=== PATIENT | female | born 1980 | race Caucasian/White ===

== ENCOUNTER 2021-01-11 05:55 | Day surgery (SDC) | payer OTHER ==
[2021-01-11] MEDS ORDERED: Lactated Ringers 1,000 ML IV SCH (06:30)
[2021-01-11] MEDS ORDERED: Versed 2 MG/2 ML Injection ONE (07:31)
[2021-01-11] MEDS ORDERED: DIPRIVAN 200 MG/20 ML IV ONE ×2 (07:31→07:41)
[2021-01-11] MEDS ORDERED: Lactated Ringers 1,000 ML IV ONE (07:53)
[2021-01-11 08:24] VITALS: O2SAT 98
[2021-01-11 08:49] VITALS: BP 126/71; PULSE 68
--- NOTE | 2021-01-11 11:50 | OP ---
SURGERY DATE/TIME: 01/11/2021 2721 PREOPERATIVE DIAGNOSIS: Diarrhea. POSTOPERATIVE DIAGNOSIS: Normal exam. PROCEDURE: Colonoscopy with cold forceps biopsies. SURGEON: Dr. Casey. ANESTHESIA: MAC. Medications given by anesthesia department. HISTORY: The patient is a 40 year-old white female who reports she has been having problems with stools each time she eats with up to six times a day since June. The patient reports she did have problems with what was felt to be an irritable bowel issue for that time. She reports that she now has an ankle bracelet on and is obviously having increased stressors. The patient also reported that she has a brother that had a colostomy bag for unknown reason. The patient is felt the need to have endoscopic evaluation. She was appraised of the risks of the procedure including the risk of perforation, phlebitis, untoward reaction to medication, bleeding and missed lesions. The patient verbalized her understanding and desired to have the procedure performed. DESCRIPTION OF PROCEDURE: The patient was given the medications by the anesthesia department. She had continuous pulse oximetry, ECG monitoring, intermittent blood pressure monitoring and tidal CO2 monitoring during the examination. She was placed in the left lateral decubitus position. A digital rectal examination was performed and revealed normal anal sphincter tone and no masses. The flexible Olympus pediatric colonoscope was used to intubate the rectum. A view of the colon was developed sequentially to the cecum including a short distance into the terminal ileum. Upon insertion and withdrawal was noted approximately 1.5 cm firm submucosal lesion noted in the ascending colon. We attempted to biopsy this x2. We also did multiple biopsies throughout the colon to rule out microscopic colitis. The scope was removed from the patient who tolerated the procedure well and was sent back to OP recovery in good condition. The prep was noted to be fair.
== END 2021-01-11 09:00 | disposition home or self-care (01) ==
LOC: SDC 05:55
PROVIDERS: ATTEND Family Medicine
DX: R19.7 Diarrhea, unspecified (principal); I10 Essential (primary) hypertension; Z79.899 Other long term (current) drug therapy; Z87.19 Personal history of other diseases of the digestive system
CPT/HCPCS: 84703; 88305; J2250; J2704

== ENCOUNTER 2021-11-11 16:20 | Emergency (ER) | payer OTHER ==
--- NOTE | 2021-11-11 16:57 | ERPHSYRPT ---
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 pt reports associated lightheadedness today and has been dealing with palpitations for [address] Muñoz ordered a groundwater monitoring technician for her but she was unable to obtain it due to being quarentined. rates 6/10 CP now in L chest that radiates to L jaw and L shoulder. heart sounds clear Physician History: 41 yo wf w L sternal chest pain w radiation to L shoulder and L neck since 10:30. Pain is 6/10, sharp, and interrmittant lasting 1 minute. She denies N/V/Dyspnea/diaphoresis/cough/fever. Pt has a h/o HTN, tobacco abuse till 2 yrs ago but denies DM/hyperlipidemia. Nothing makes the pain better or worse. Timing/Duration: other (10:30AM) Quality: sharpness, stabbing Location: substernal Chest Pain Radiation: neck, arm (L shoulder) Severity of Pain-Max: moderate Severity of Pain-Current: moderate Modifying Factors: Worsens With: antacids, breathing, coughing, defecating, eating, exertion, lying down, morphine, movement, nitroglycerin, oxygen, palpation, rest, aspirin, sitting up, change in position Associated Symptoms: palpitations, No nausea, No vomiting, No heartburn, No abdominal pain, No shortness of breath, No cough, No hurts to breathe, No diaphoresis, No chills, No fever, No fatigue, No weakness, No swelling/lump in chest, No syncope, No rash, No headache, No dizziness, No edema Prior Chest Pain/Cardiac Workup: no prior chest pain Nitro Today/Relief: no nitro taken today Aspirin Treatment Today: 81 mg x 1 Allergies/Adverse Reactions: Penicillins Allergy (Severe, Verified 11/11/21 16:31) Anaphylactic Reaction Home Medications: Sertraline HCl 50 mg [Zoloft 50 mg Tablet] 100 mg PO DAILY 01/01/21 [History] Lisinopril/Hydrochlorothiazide [Lisinopril-Hctz 10-12.5 mg Tab] 1 each PO DAILY 01/11/21 [History] Famotidine [Pepcid] 40 mg PO DAILY 11/11/21 [History] Hx Tetanus, Diphtheria Vaccination/Date Given: Yes Hx Influenza Vaccination/Date Given: Yes Hx Pneumococcal Vaccination/Date Given: No Immunizations Up to Date: Yes Travel Risk - International Travel Have you traveled outside of the country in past 3 weeks: No - Coronavirus Screening Are you exhibiting any of the following symptoms?: No Close contact with a COVID-19 positive Pt in past 14-21 Days: No - Vaccine Status Have you recieved a Covid-19 vaccination: No - Review of Systems Constitutional: No Symptoms Eyes: No Symptoms Ears, Nose, & Throat: No Symptoms Respiratory: No Symptoms Cardiac: No Symptoms, Chest Pain Abdominal/Gastrointestinal: No Symptoms Genitourinary Symptoms: No Symptoms Musculoskeletal: No Symptoms Skin: No Symptoms Neurological: No Symptoms Psychological: No Symptoms Endocrine: No Symptoms Hematologic/Lymphatic: No Symptoms Immunological/Allergic: No Symptoms - Past Medical History Pertinent Past Medical History: Yes Neurological History: No Pertinent History ENT History: No Pertinent History Cardiac History: Hypertension Respiratory History: No Pertinent History Endocrine Medical History: No Pertinent History Musculoskeletal History: No Pertinent History GI Medical History: GERD, Gallbladder Disease History: No Pertinent History Psycho-Social History: Depression Female Reproductive Disorders: No Pertinent History - Past Surgical History Past Surgical History: Yes Neuro Surgical History: No Pertinent History Cardiac: No Pertinent History Respiratory: No Pertinent History Gastrointestinal: Cholecystectomy Genitourinary: No Pertinent History Musculoskeletal: No Pertinent History Female Surgical History: Section Other Surgical History: 2 c-sections, Lymph nodes removed from neck( related to infection per pt) - Social History Smoking Status: Never smoker Exposure to second hand smoke: No Drug Use: none Patient Lives Alone: No ([facility]) Significant Family History: no pertinent family hx - Female History Hx Last Menstrual Period: current Hx Now: No - Nursing Vital Signs Nursing Vital Signs: Initial Vital Signs Temperature 98.4 F 11/11/21 16:22 Pulse Rate 80 11/11/21 16:22 Respiratory Rate 21 11/11/21 16:22 Blood Pressure 133/66 11/11/21 16:22 O2 Sat by Pulse Oximetry 98 11/11/21 16:22 Pain Scale Pain Intensity 6 WNL - Physical Exam General Appearance: no apparent distress Eye Exam: PERRL/EOMI, eyes nml inspection Ears, Nose, Throat Exam: normal ENT inspection, TMs normal, pharynx normal, moist mucous membranes Neck Exam: normal inspection, non-tender, supple, full range of motion, No meningismus, No mass, No Brudzinski, No Kernig's, No carotid bruit Respiratory Exam: normal breath sounds, lungs clear, airway intact, No respiratory distress Cardiovascular Exam: regular rate/rhythm, normal heart sounds, normal peripheral pulses, capillary refill <2 sec, No murmur Gastrointestinal/Abdomen Exam: soft, normal bowel sounds, No tenderness Back Exam: normal inspection, normal range of motion, No CVA tenderness Extremity Exam: normal inspection, normal range of motion Neurologic Exam: alert, 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, cooperative, 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-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 nml as tested, normal mood/affect, nml cerebellar function, nml station & gait, sensation nml, No motor deficits, No sensory deficit Skin Exam: normal color, warm Lymphatic Exam: No adenopathy SpO2 Interpretation: normal SpO2: 98 O2 Delivery: Room Air - Course Nursing assessment & vital signs reviewed: Yes EKG Interpreted by Me: RATE (NSR/Rate 81/Normal QT-QTc/No acute ST segment changes) - Radiology Exams Chest X-ray Interpretation: Interpreted by me (CXR wnl) Ordered Tests: Medication Summary Discontinued Medications Generic Name Dose Route Start Last Admin Trade Name Freq PRN Reason Stop Dose Admin Aspirin 325 mg 11/12/21 10:00 11/11/21 16:52 Aspirin 325 Mg Tablet.Ec PO 12/12/21 09:59 325 mg QAM DELFINO Administration Lab/Rad Data: Laboratory Result Diagrams 11/11/21 17:04 11/11/21 17:04 Laboratory Results 11/11/21 11/11/21 11/11/21 Range/Units 17:04 17:04 17:04 WBC (4.0-10.5) K/mm3 RBC (4.1-5.4) M/mm3 Hgb (12.0-16.0) gm/dl Hct (35-47) % MCV (78-100) fl MCH (26-32) pg MCHC (32-36) g/dl RDW (11.5-14.0) % Plt Count (150-450) K/mm3 MPV (7.5-11.0) fl Gran % (36.0-66.0) % Eos # (Auto) (0-0.5) Absolute Lymphs (auto) (1.0-4.6) Absolute Monos (auto) (0.0-1.3) Lymphocytes % (24.0-44.0) % Monocytes % (0.0-12.0) % Eosinophils % (0.00-5.0) % Basophils % (0.0-0.4) % Absolute Granulocytes (1.4-6.9) Segmented Neutrophils (36.0-66.0) % Lymphocytes (Manual) (24-44) % Monocytes (Manual) (0.0-12.0) % Eosinophils (Manual) (0.00-3.0) % Basophils # (0-0.4) Platelet Estimate (NORMAL) RBC Morphology PT 13.2 H (9.4-12.5) SECONDS INR 1.12 (0.8-3.0) APTT 32.7 (25.1-36.5) SECONDS D-Dimer 589 H* (215-500) ng/mL Sodium 138 (137-145) mmol/L Potassium 4.1 (3.5-5.1) mmol/L Chloride 109 H (98-107) mmol/L Carbon Dioxide 19 L (22-30) mmol/L Anion Gap 14.6 (5-15) MEQ/L BUN 12 (7-17) mg/dL Creatinine 0.78 (0.52-1.04) mg/dL Estimated GFR > 60.0 ML/MIN Glucose 100 (74-106) mg/dL Calcium 9.0 (8.4-10.2) mg/dL Total Bilirubin 0.30 (0.2-1.3) mg/dL AST 24 (14-36) U/L ALT 23 (0-35) U/L Alkaline Phosphatase 98 (38-126) U/L Troponin I < 0.012 (0.000-0.034) ng/mL NT-Pro-B Natriuret Pep 106 (0-450) pg/mL Serum Total Protein 7.8 (6.3-8.2) g/dL Albumin 4.5 (3.5-5.0) g/dL 11/11/21 Range/Units 17:04 WBC 8.4 (4.0-10.5) K/mm3 RBC 4.12 (4.1-5.4) M/mm3 Hgb 11.6 L (12.0-16.0) gm/dl Hct 35.7 (35-47) % MCV 86.7 (78-100) fl MCH 28.2 (26-32) pg MCHC 32.5 (32-36) g/dl RDW 15.1 H (11.5-14.0) % Plt Count 314 (150-450) K/mm3 MPV 8.9 (7.5-11.0) fl Gran % 52.9 (36.0-66.0) % Eos # (Auto) 0.17 (0-0.5) Absolute Lymphs (auto) 3.13 (1.0-4.6) Absolute Monos (auto) 0.63 (0.0-1.3) Lymphocytes % 37.2 (24.0-44.0) % Monocytes % 7.5 (0.0-12.0) % Eosinophils % 2.0 (0.00-5.0) % Basophils % 0.4 (0.0-0.4) % Absolute Granulocytes 4.46 (1.4-6.9) Segmented Neutrophils 62 (36.0-66.0) % Lymphocytes (Manual) 28 (24-44) % Monocytes (Manual) 8 (0.0-12.0) % Eosinophils (Manual) 2 (0.00-3.0) % Basophils # 0.03 (0-0.4) Platelet Estimate NORMAL (NORMAL) RBC Morphology NORMAL PT (9.4-12.5) SECONDS INR (0.8-3.0) APTT (25.1-36.5) SECONDS D-Dimer (215-500) ng/mL Sodium (137-145) mmol/L Potassium (3.5-5.1) mmol/L Chloride (98-107) mmol/L Carbon Dioxide (22-30) mmol/L Anion Gap (5-15) MEQ/L BUN (7-17) mg/dL Creatinine (0.52-1.04) mg/dL Estimated GFR ML/MIN Glucose (74-106) mg/dL Calcium (8.4-10.2) mg/dL Total Bilirubin (0.2-1.3) mg/dL AST (14-36) U/L ALT (0-35) U/L Alkaline Phosphatase (38-126) U/L Troponin I (0.000-0.034) ng/mL NT-Pro-B Natriuret Pep (0-450) pg/mL Serum Total Protein (6.3-8.2) g/dL Albumin (3.5-5.0) g/dL - Progress Progress: improved Progress Note: 11/11/21 19:09 Heart score1 Troponin negative/CTA chest wnl/EKG wo acute changes Counseled pt/family regarding: lab results, diagnosis, need for follow-up, rad results - Departure Departure Disposition: Home Clinical Impression: Chest pain Condition: Stable Critical Care Time: No Referrals: TORRES MUÑOZ MD [Primary Care Provider] - Follow up/PCP as directed Instructions: Chest Pain (DC) Additional Instructions: Follow up with your family MD in 1-2 days Return to ER for increasing chest pain or shortness of breath
[2021-11-11 17:09] LABS: Absolute Neutrophil Ct (ANC) 4.46 (1.4-6.9); Basophil (Absolute #) 0.03 (0-0.4); Eosinophil (Absolute #) 0.17 (0-0.5); Hematocrit 35.7 % (35-47); Hemoglobin 11.6 gm/dl (12.0-16.0); Lymphocyte (Absolute #) 3.13 (1.0-4.6); Lymphocytes % 37.2 % (24.0-44.0); Mean Cell Volume 86.7 fl (78-100); Mean Corpuscular Hemoglobin 28.2 pg (26-32); Mean Corpuscular Hgb Concent. 32.5 g/dl (32-36); Mean Platelet Volume 8.9 fl (7.5-11.0); Monocyte (Absolute #) 0.63 (0.0-1.3); Monocytes % 7.5 % (0.0-12.0); Neutrophil % 52.9 % (36.0-66.0); Platelet Count 314 K/mm3 (150-450); Red Blood Count 4.12 M/mm3 (4.1-5.4); Red Cell Distribution Width 15.1 % (11.5-14.0); White Blood Count 8.4 K/mm3 (4.0-10.5)
[2021-11-11 17:15] LABS: INR 1.12 (0.8-3.0); PROTIME 13.2 SECONDS (9.4-12.5)
[2021-11-11 17:18] LABS: PTT 32.7 SECONDS (25.1-36.5)
[2021-11-11 17:29] LABS: ALBUMIN 4.5 g/dL (3.5-5.0); ALKALINE PHOSPHATASE 98 U/L (38-126); ANION GAP 14.6 MEQ/L (5-15); BLOOD UREA NITROGEN 12 mg/dL (7-17); CHLORIDE 109 mmol/L (98-107); Carbon Dioxide 19 mmol/L (22-30); Creatinine 1 0.78 mg/dL (0.52-1.04); EST GLOMERULAR FILTRATION RATE > 60.0 ML/MIN; Glucose 100 mg/dL (74-106); NT PRO BNP 106 pg/mL (0-450); Potassium 4.1 mmol/L (3.5-5.1); SGOT/AST 24 U/L (14-36); SGPT/ALT 23 U/L (0-35); SODIUM 138 mmol/L (137-145); Total Protein 7.8 g/dL (6.3-8.2)
[2021-11-11 18:36] VITALS: BP 118/70; PULSE 75
[2021-11-11 19:11] VITALS: O2SAT 98
[2021-11-11 20:21] LABS: Eosinophil 2 % (0.00-3.0); Lymphocytes 28 % (24-44); Monocyte 8 % (0.0-12.0); Neutrophils 62 % (36.0-66.0); Platelet Estimate NORMAL (NORMAL); Total Cells Counted 100
--- NOTE | 2021-11-12 08:35 | XRAY ---
Indication: Chest pain. Pulmonary embolus. Multiple contiguous axial images obtained through the chest using 100 cc Isovue 370 contrast and PE protocol. Comparison: None There is suboptimal opacification of the pulmonary arteries. No obvious pulmonary embolus. Heart not enlarged. Aorta is normal in course and caliber. Tiny paratracheal calcified nodes. No pathologic mediastinal lymphadenopathy. Small hiatal hernia. Lungs inflated with tiny right upper lobe calcified granulomas. No suspicious pulmonary mass, infiltrate, or effusion. Bony thorax intact with minimal/mild degenerative changes throughout the spine. Limited upper abdomen demonstrates fatty liver. Impression: 1. Negative pulmonary embolus. No acute cardiopulmonary abnormalities. 2. Incidental small hiatal hernia, fatty liver, degenerative spondylosis, and old granulomatous disease.
--- NOTE | 2021-11-12 08:37 | XRAY ---
Indication: Chest pain. Comparison: None Portable chest demonstrates normal heart, lungs, and bony thorax with incidental right apical calcified granuloma.
[2021-11-12] MEDS ORDERED: Ecotrin 325 MG PO SCH (10:00)
== END 2021-11-11 19:25 | disposition home or self-care (01) ==
LOC: ED 16:20
DX: R07.9 Chest pain, unspecified (principal); R00.2 Palpitations; I10 Essential (primary) hypertension; K21.9 Gastro-esophageal reflux disease without esophagitis; Z79.899 Other long term (current) drug therapy
CPT/HCPCS: 36000; 36415; 71045; 71260; 80053; 83880; 84484; 85025; 85379; 85610; 85730; 93005; 93225; 99284; A9270-GY

== ENCOUNTER 2022-11-18 18:08 | Emergency (ER) | payer OTHER ==
--- NOTE | 2022-11-18 18:12 | ERPHSYRPT ---
- History of Present Illness Time Seen by Provider: 11/18/22 18:12 Source: patient Exam Limitations: no limitations Allergies/Adverse Reactions: Penicillins Allergy (Severe, Verified 11/11/21 16:31) Anaphylactic Reaction Home Medications: Sertraline HCl 50 mg [Zoloft 50 mg Tablet] 100 mg PO DAILY 01/01/21 [History] Lisinopril/Hydrochlorothiazide [Lisinopril-Hctz 10-12.5 mg Tab] 1 each PO DAILY 01/11/21 [History] Famotidine [Pepcid] 40 mg PO DAILY 11/11/21 [History] Hx Tetanus, Diphtheria Vaccination/Date Given: Yes Hx Influenza Vaccination/Date Given: Yes Hx Pneumococcal Vaccination/Date Given: No Travel Risk - Vaccine Status Have you recieved a Covid-19 vaccination: No - Past Medical History Pertinent Past Medical History: Yes Neurological History: No Pertinent History ENT History: No Pertinent History Cardiac History: Hypertension Respiratory History: No Pertinent History Endocrine Medical History: No Pertinent History Musculoskeletal History: No Pertinent History GI Medical History: GERD, Gallbladder Disease History: No Pertinent History Psycho-Social History: Depression Female Reproductive Disorders: No Pertinent History - Past Surgical History Past Surgical History: Yes Neuro Surgical History: No Pertinent History Cardiac: No Pertinent History Respiratory: No Pertinent History Gastrointestinal: Cholecystectomy Genitourinary: No Pertinent History Musculoskeletal: No Pertinent History Female Surgical History: Section Other Surgical History: 2 c-sections, Lymph nodes removed from neck( related to infection per pt) - Social History Smoking Status: Never smoker Exposure to second hand smoke: No Drug Use: none Patient Lives Alone: No ([facility]) Significant Family History: no pertinent family hx - Departure Referrals: TORRES MUÑOZ MD [Primary Care Provider] - Follow up/PCP as directed
--- NOTE | 2022-11-18 18:50 | ERPHSYRPT ---
- History of Present Illness Time Seen by Provider: 11/18/22 18:12 Source: patient Exam Limitations: no limitations Patient Subjective Stated Complaint: pt here for bilat. shoulder pain with movement since last night and to day some neck pain. took tylenol and asa today . under a lot of stress Triage Nursing Assessment: pt alert, resp easy easy, skin w/d/p. walked in, no edema noted Physician History: This is a 42-year-old overweight white female who presents with neck and left shoulder pain that started yesterday and appeared to be worse today per her report. She has no chest pain. However, at work, her coworkers told her that those symptoms could be a sign of heart attack and she became worried. She stated that for the neck and shoulder pain she would have just use Tylenol and ibuprofen but because of her anxiety, she wanted her heart checked. Patient is not short of breath. She has no diagnosed cardiac problems. Patient did not fall or injure her neck or shoulder. Patient has a history of gastroesophageal reflux disease, depression, hyperlipidemia and hypertension Timing/Duration: today Severity: mild Associated Symptoms: denies symptoms Allergies/Adverse Reactions: Penicillins Allergy (Severe, Verified 11/18/22 18:23) Anaphylactic Reaction Home Medications: Sertraline HCl 50 mg [Zoloft 50 mg Tablet] 100 mg PO DAILY 01/01/21 [History] Lisinopril/Hydrochlorothiazide [Lisinopril-Hctz 10-12.5 mg Tab] 1 each PO DAILY 01/11/21 [History] Famotidine [Pepcid] 40 mg PO DAILY 11/11/21 [History] Exenatide Microspheres [Bydureon Bcise] 2 mg SQ UD 11/18/22 [History] Simvastatin 10 mg [Zocor 10MG] 10 mg PO DAILY 11/18/22 [History] Hx Tetanus, Diphtheria Vaccination/Date Given: Yes Hx Influenza Vaccination/Date Given: Yes Hx Pneumococcal Vaccination/Date Given: No Immunizations Up to Date: Yes Travel Risk - International Travel Have you traveled outside of the country in past 3 weeks: No - Coronavirus Screening Are you exhibiting any of the following symptoms?: No Close contact with a COVID-19 positive Pt in past 14-21 Days: No - Vaccine Status Have you recieved a Covid-19 vaccination: No - Review of Systems Constitutional: No Symptoms Eyes: No Symptoms Ears, Nose, & Throat: No Symptoms Respiratory: No Symptoms Cardiac: No Symptoms, No Chest Pain Abdominal/Gastrointestinal: No Symptoms Genitourinary Symptoms: No Symptoms Musculoskeletal: Neck Pain (Left muscularmild), Other (Left shoulder discomfortmild), No Injury Skin: No Symptoms Neurological: No Symptoms Psychological: No Symptoms Endocrine: No Symptoms Hematologic/Lymphatic: No Symptoms Immunological/Allergic: No Symptoms All Other Systems: Reviewed and Negative - Past Medical History Pertinent Past Medical History: Yes Neurological History: No Pertinent History ENT History: No Pertinent History Cardiac History: Hypertension Respiratory History: No Pertinent History Endocrine Medical History: No Pertinent History Musculoskeletal History: No Pertinent History GI Medical History: GERD, Gallbladder Disease History: No Pertinent History Psycho-Social History: Depression Female Reproductive Disorders: No Pertinent History - Past Surgical History Past Surgical History: Yes Neuro Surgical History: No Pertinent History Cardiac: No Pertinent History Respiratory: No Pertinent History Gastrointestinal: Cholecystectomy Genitourinary: No Pertinent History Musculoskeletal: No Pertinent History Female Surgical History: Section Other Surgical History: 2 c-sections, Lymph nodes removed from neck( related to infection per pt) - Social History Smoking Status: Never smoker Exposure to second hand smoke: No Drug Use: none Patient Lives Alone: No ([facility]) Significant Family History: no pertinent family hx - Female History Hx Last Menstrual Period: 10/30/2022 Hx Now: No - Nursing Vital Signs Nursing Vital Signs: Initial Vital Signs Temperature 97.2 F 11/18/22 18:31 Pulse Rate 77 11/18/22 18:31 Respiratory Rate 18 11/18/22 18:31 Blood Pressure 119/72 11/18/22 18:31 O2 Sat by Pulse Oximetry 98 11/18/22 18:31 Pain Scale Pain Intensity 6 - Physical Exam General Appearance: no apparent distress, alert, anxiety, obese Eye Exam: PERRL/EOMI, eyes nml inspection Ears, Nose, Throat Exam: normal ENT inspection, moist mucous membranes Neck Exam: normal inspection, non-tender, supple, full range of motion Respiratory Exam: normal breath sounds, lungs clear, airway intact, No chest tenderness, No respiratory distress Cardiovascular Exam: regular rate/rhythm, normal heart sounds, normal peripheral pulses Gastrointestinal/Abdomen Exam: soft, normal bowel sounds, No tenderness Pelvic Exam: not done Rectal Exam: not done Back Exam: normal inspection, normal range of motion, No CVA tenderness, No vertebral tenderness Extremity Exam: normal inspection, normal range of motion, pelvis stable Neurologic Exam: alert, 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, 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, 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, normal mood/affect, nml cerebellar function, nml station & gait, sensation nml Skin Exam: normal color, warm, dry Lymphatic Exam: No adenopathy SpO2 Interpretation: normal SpO2: 98 O2 Delivery: Room Air - Course Nursing assessment & vital signs reviewed: Yes EKG Interpreted by Me: RATE (71), Sinus Rhythm, NORMAL AXIS, NORMAL INTERVALS, NORMAL QRS, NORMAL ST-T, Other (No acute ischemic changes.) Ordered Tests: Active Orders 24 hr Category Date Time Status Planning Feeder STAT Care 11/18/22 18:51 Active EKG-ER Only STAT Care 11/18/22 18:51 Active Pulse Oximetry (ED) STAT Care 11/18/22 18:51 Active CBC W DIFF Stat Lab 11/18/22 19:05 Completed CMP Stat Lab 11/18/22 19:05 Completed D-DIMER QUANTITATIVE Stat Lab 11/18/22 19:05 Completed TROPONIN Q4H Lab 11/18/22 19:05 Completed TROPONIN Q4H Lab 11/18/22 23:00 Ordered TROPONIN Q4H Lab 11/19/22 03:00 Ordered Lab/Rad Data: Laboratory Result Diagrams 11/18/22 19:05 11/18/22 19:05 Laboratory Results 11/18/22 11/18/22 11/18/22 Range/Units 19:05 19:05 19:05 WBC (4.0-10.5) x10^3/uL RBC (4.1-5.4) x10^6/uL Hgb (12.0-16.0) g/dL Hct (35-47) % MCV (78-100) fL MCH (26-32) pg MCHC (32-36) g/dL RDW (11.5-14.0) % Plt Count (150-450) x10^3/uL MPV (7.5-11.0) fL Gran % (36.0-66.0) % Immature Gran % (Auto) (0.00-0.4) % Nucleat RBC Rel Count (0.00-0.1) % Eos # (Auto) (0-0.5) x10^3/uL Immature Gran # (Auto) (0.00-0.03) x10^3u/L Absolute Lymphs (auto) (1.0-4.6) x10^3/uL Absolute Monos (auto) (0.0-1.3) x10^3/uL Absolute Nucleated RBC (0.00-0.01) x10^3u/L Lymphocytes % (24.0-44.0) % Monocytes % (0.0-12.0) % Eosinophils % (0.00-5.0) % Basophils % (0.0-0.4) % Absolute Granulocytes (1.4-6.9) x10^3/uL Basophils # (0-0.4) x10^3/uL D-Dimer 0.21 (0.0-0.50) mg/L Sodium 141 (137-145) mmol/L Potassium 4.4 (3.5-5.1) mmol/L Chloride 106 (98-107) mmol/L Carbon Dioxide 24 (22-30) mmol/L Anion Gap 15.2 H (5-15) MEQ/L BUN 20 H (7-17) mg/dL Creatinine 0.91 (0.52-1.04) mg/dL Estimated GFR > 60.0 ML/MIN Glucose 97 (74-106) mg/dL Calcium 8.9 (8.4-10.2) mg/dL Total Bilirubin 0.30 (0.2-1.3) mg/dL AST 23 (14-36) U/L ALT 21 (0-35) U/L Alkaline Phosphatase 78 (38-126) U/L Troponin I < 0.012 (0.000-0.034) ng/mL Serum Total Protein 7.5 (6.3-8.2) g/dL Albumin 4.3 (3.5-5.0) g/dL 11/18/22 Range/Units 19:05 WBC 8.4 (4.0-10.5) x10^3/uL RBC 3.93 L (4.1-5.4) x10^6/uL Hgb 10.9 L (12.0-16.0) g/dL Hct 34.2 L (35-47) % MCV 87.0 (78-100) fL MCH 27.7 (26-32) pg MCHC 31.9 L (32-36) g/dL RDW 14.8 H (11.5-14.0) % Plt Count 269 (150-450) x10^3/uL MPV 9.5 (7.5-11.0) fL Gran % 53.6 (36.0-66.0) % Immature Gran % (Auto) 0.2 (0.00-0.4) % Nucleat RBC Rel Count 0.0 (0.00-0.1) % Eos # (Auto) 0.07 (0-0.5) x10^3/uL Immature Gran # (Auto) 0.02 (0.00-0.03) x10^3u/L Absolute Lymphs (auto) 3.31 (1.0-4.6) x10^3/uL Absolute Monos (auto) 0.48 (0.0-1.3) x10^3/uL Absolute Nucleated RBC 0.00 (0.00-0.01) x10^3u/L Lymphocytes % 39.3 (24.0-44.0) % Monocytes % 5.7 (0.0-12.0) % Eosinophils % 0.8 (0.00-5.0) % Basophils % 0.4 (0.0-0.4) % Absolute Granulocytes 4.52 (1.4-6.9) x10^3/uL Basophils # 0.03 (0-0.4) x10^3/uL D-Dimer (0.0-0.50) mg/L Sodium (137-145) mmol/L Potassium (3.5-5.1) mmol/L Chloride (98-107) mmol/L Carbon Dioxide (22-30) mmol/L Anion Gap (5-15) MEQ/L BUN (7-17) mg/dL Creatinine (0.52-1.04) mg/dL Estimated GFR ML/MIN Glucose (74-106) mg/dL Calcium (8.4-10.2) mg/dL Total Bilirubin (0.2-1.3) mg/dL AST (14-36) U/L ALT (0-35) U/L Alkaline Phosphatase (38-126) U/L Troponin I (0.000-0.034) ng/mL Serum Total Protein (6.3-8.2) g/dL Albumin (3.5-5.0) g/dL - Progress Progress: improved Progress Note: 11/18/22 19:53 This patient's medical issue is 1 of moderate complexity. The level of complexity and the work-up performed is based on review of the patient's past medical history, medication list and drug allergy list as well as history of present illness and physical findings on examination. The work-up performed includes twelve-lead EKG, CBC, CMP, D-dimer, troponin level. I reviewed the r esults of these studies. There are no emergent abnormalities. I discussed this with the patient. Patient does have muscle skeletal pain in the left shoulder and neck without history of trauma. The discharge plan would be for her to use Tylenol and ibuprofen and heating pad if she desires. Patient is to follow-up with primary care provider for further evaluation management. Counseled pt/family regarding: lab results, diagnosis, need for follow-up Medical Desision Making - Discussion of managment Agreed on:: Treatment plan, need for follow-up - Diagnostic Testing Diagnostic test were ordered, analyzed, and reviewed by me: Yes Radiological Interpretation: Interpreted by me - Departure Departure Disposition: Home Clinical Impression: Pain on movement of skeletal muscle Condition: Stable Critical Care Time: No Referrals: TORRES MUÑOZ MD [Primary Care Provider] - Follow up/PCP as directed Additional Instructions: Use Tylenol and ibuprofen for pain control. Follow-up with your primary care provider for further evaluation management.
[2022-11-18 19:16] LABS: Absolute Neutrophil Ct (ANC) 4.52 x10^3/uL (1.4-6.9); BASOPHIL % 0.4 % (0.0-0.4); Basophil (Absolute #) 0.03 x10^3/uL (0-0.4); Eosinophil % 0.8 % (0.00-5.0); Eosinophil (Absolute #) 0.07 x10^3/uL (0-0.5); Hematocrit 34.2 % (35-47); Hemoglobin 10.9 g/dL (12.0-16.0); IMMATURE GRAN # 0.02 x10^3u/L (0.00-0.03); IMMATURE GRAN % 0.2 % (0.00-0.4); Lymphocyte (Absolute #) 3.31 x10^3/uL (1.0-4.6); Lymphocytes % 39.3 % (24.0-44.0); Mean Corpuscular Hemoglobin 27.7 pg (26-32); Mean Corpuscular Hgb Concent. 31.9 g/dL (32-36); Mean Platelet Volume 9.5 fL (7.5-11.0); Monocyte (Absolute #) 0.48 x10^3/uL (0.0-1.3); Monocytes % 5.7 % (0.0-12.0); Neutrophil % 53.6 % (36.0-66.0); Platelet Count 269 x10^3/uL (150-450); Red Blood Count 3.93 x10^6/uL (4.1-5.4); Red Cell Distribution Width 14.8 % (11.5-14.0); White Blood Count 8.4 x10^3/uL (4.0-10.5)
[2022-11-18 19:30] LABS: ALBUMIN 4.3 g/dL (3.5-5.0); ALKALINE PHOSPHATASE 78 U/L (38-126); ANION GAP 15.2 MEQ/L (5-15); BLOOD UREA NITROGEN 20 mg/dL (7-17); CHLORIDE 106 mmol/L (98-107); Calcium 8.9 mg/dL (8.4-10.2); Carbon Dioxide 24 mmol/L (22-30); Creatinine 1 0.91 mg/dL (0.52-1.04); EST GLOMERULAR FILTRATION RATE > 60.0 ML/MIN; Glucose 97 mg/dL (74-106); Potassium 4.4 mmol/L (3.5-5.1); SGOT/AST 23 U/L (14-36); SGPT/ALT 21 U/L (0-35); SODIUM 141 mmol/L (137-145); Total Protein 7.5 g/dL (6.3-8.2)
[2022-11-18 19:55] VITALS: O2SAT 98
[2022-11-18 20:05] VITALS: BP 109/80; PULSE 75
== END 2022-11-18 20:09 | disposition home or self-care (01) ==
LOC: ED 18:08
DX: M79.18 Myalgia, other site (principal); M54.2 Cervicalgia; M25.512 Pain in left shoulder; E78.5 Hyperlipidemia, unspecified; I10 Essential (primary) hypertension; Z79.899 Other long term (current) drug therapy; Z28.310 Unvaccinated for COVID-19
CPT/HCPCS: 36415; 80053; 84484; 85025; 85379; 93005; 93041; 94760; 99283

== ENCOUNTER 2023-04-13 20:20 | Emergency (ER) | payer OTHER ==
[2023-04-13 20:44] VITALS: TEMP 99.4
[2023-04-13] MEDS ORDERED: Reglan 10 MG/2 ML IM ONE (20:48)
[2023-04-13] MEDS ORDERED: BENADRYL 50 MG/ML IM ONE (20:48)
[2023-04-13] MEDS ORDERED: TORAdol 30 mg Injection IM ONE (20:48)
[2023-04-13] MEDS ORDERED: BENADRYL 50 MG/ML ONE (20:53)
[2023-04-13] MEDS ORDERED: TORAdol 30 mg Injection ONE (20:53)
[2023-04-13] MEDS ORDERED: Reglan 10 MG/2 ML ONE (20:53)
--- NOTE | 2023-04-13 21:19 | ERPHSYRPT ---
- History of Present Illness Time Seen by Provider: 04/13/23 20:23 Source: patient Exam Limitations: no limitations Patient Subjective Stated Complaint: pt states she was positive for covid on monday. pt states that she began to have a headache and fever 2 hours prior to a rrival. 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 Patient reports she has been tested positive for COVID-19 almost 5 days ago, started to feel better and this evening she started to have fever 101 and headache, took Tylenol and temperature is improved. Reports generalized headache without blurry vision, numbness tingling or focal weakness. Denies any associated nausea vomiting. Does have diarrhea since she has COVID-19 few days ago. He has nonfocal neuro exam throughout stay in the ER. No nuchal rigidity. Lungs bilateral clear to auscultation. She is afebrile here. She is offered work-up but does not want anything done but symptomatic relief of her headache. She does have history of migraine and thinks its similar to that. Does not think this is the worst headache of her life. She is given Toradol Reglan and Benadryl, on reevaluation her headache is improved. She is advised symptomatic care and outpatient follow-up. Discussed signs symptoms of worsening needing return to ER which she seems understanding. Stable for discharge. Allergies/Adverse Reactions: Penicillins Allergy (Severe, Verified 04/13/23 20:29) Anaphylactic Reaction Home Medications: Sertraline HCl 50 mg [Zoloft 50 mg Tablet] 100 mg PO DAILY 01/01/21 [History] Lisinopril/Hydrochlorothiazide [Lisinopril-Hctz 10-12.5 mg Tab] 1 each PO DAILY 01/11/21 [History] Famotidine [Pepcid] 40 mg PO DAILY 11/11/21 [History] Exenatide Microspheres [Bydureon Bcise] 2 mg SQ UD 11/18/22 [History] Simvastatin 10 mg [Zocor 10MG] 10 mg PO DAILY 11/18/22 [History] Hx Tetanus, Diphtheria Vaccination/Date Given: Yes Hx Influenza Vaccination/Date Given: No Hx Pneumococcal Vaccination/Date Given: No Travel Risk - International Travel Have you traveled outside of the country in past 3 weeks: No - Coronavirus Screening Are you exhibiting any of the following symptoms?: Yes Symptoms: Fever, Headaches/Body Aches/Fatigue Close contact with a COVID-19 positive Pt in past 14-21 Days: No - Vaccine Status Have you recieved a Covid-19 vaccination: No - Review of Systems Constitutional: No Symptoms Eyes: No Symptoms Ears, Nose, & Throat: No Symptoms Respiratory: No Symptoms Cardiac: No Symptoms Abdominal/Gastrointestinal: No Symptoms Genitourinary Symptoms: No Symptoms Musculoskeletal: No Symptoms Skin: No Symptoms Neurological: Headache Psychological: No Symptoms Endocrine: No Symptoms Hematologic/Lymphatic: No Symptoms Immunological/Allergic: No Symptoms - Past Medical History Pertinent Past Medical History: Yes Neurological History: No Pertinent History ENT History: No Pertinent History Cardiac History: Hypertension Respiratory History: No Pertinent History Endocrine Medical History: No Pertinent History Musculoskeletal History: No Pertinent History GI Medical History: GERD, Gallbladder Disease History: No Pertinent History Psycho-Social History: Depression Female Reproductive Disorders: No Pertinent History - Past Surgical History Past Surgical History: Yes Neuro Surgical History: No Pertinent History Cardiac: No Pertinent History Respiratory: No Pertinent History Gastrointestinal: Cholecystectomy Genitourinary: No Pertinent History Musculoskeletal: No Pertinent History Female Surgical History: Section Other Surgical History: 2 c-sections, Lymph nodes removed from neck( related to infection per pt) - Social History Smoking Status: Smoker, status unknown Exposure to second hand smoke: No Drug Use: none Patient Lives Alone: No ([facility]) Significant Family History: no pertinent family hx - Female History Hx Now: No - Nursing Vital Signs Nursing Vital Signs: Initial Vital Signs Temperature 99.4 F 04/13/23 20:29 Pulse Rate 95 H 04/13/23 20:29 Respiratory Rate 22 04/13/23 20:29 Blood Pressure 135/94 04/13/23 20:29 O2 Sat by Pulse Oximetry 97 04/13/23 20:29 Pain Scale Pain Intensity 7 - Physical Exam General Appearance: no apparent distress, alert Eye Exam: PERRL/EOMI Ears, Nose, Throat Exam: normal ENT inspection, TMs normal, pharynx normal, moist mucous membranes Neck Exam: normal inspection, non-tender, supple, full range of motion, No meningismus Respiratory Exam: normal breath sounds, lungs clear Cardiovascular Exam: regular rate/rhythm, normal heart sounds Gastrointestinal/Abdominal Exam: soft, normal bowel sounds, No tenderness Extremity Exam: normal inspection, normal range of motion Mental Status Exam: alert, 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, 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 Exam: normal hearing, normal speech, PERRL Coordination/Gait Exam: normal finger to nose, normal gait, normal cerebellar function, negative Romberg's sign DTR Exam: bicep (R): 2+, bicep (L): 2+, knee (R): 2+, knee (L): 2+ Skin Exam: normal color SpO2 Interpretation: normal SpO2: 97 O2 Delivery: Room Air Ordered Tests: Medication Summary Discontinued Medications Generic Name Dose Route Start Last Admin Trade Name Freq PRN Reason Stop Dose Admin Diphenhydramine HCl 50 mg 04/13/23 20:48 04/13/23 20:56 Diphenhydramine Hcl 50 Mg/Ml Vial IM 04/13/23 20:49 50 mg STAT ONE Administration Diphenhydramine HCl Confirm 04/13/23 20:53 Diphenhydramine Hcl 50 Mg/Ml Vial Administered 04/13/23 20:54 Dose 50 mg .ROUTE .STK-MED ONE Ketorolac Tromethamine 30 mg 04/13/23 20:48 04/13/23 20:56 Ketorolac Tromethamine 30 Mg/Ml Inj IM 04/13/23 20:49 30 mg STAT ONE Administration Ketorolac Tromethamine Confirm 04/13/23 20:53 Ketorolac Tromethamine 30 Mg/Ml Inj Administered 04/13/23 20:54 Dose 30 mg .ROUTE .STK-MED ONE Metoclopramide HCl 10 mg 04/13/23 20:48 04/13/23 20:56 Metoclopramide Hcl 10 Mg/2 Ml Vial IM 04/13/23 20:49 10 mg STAT ONE Administration Metoclopramide HCl Confirm 04/13/23 20:53 Metoclopramide Hcl 10 Mg/2 Ml Vial Administered 04/13/23 20:54 Dose 10 mg .ROUTE .STK-MED ONE - Progress Progress: improved, re-examined Air Movement: good Progress Note: 04/13/23 21:37 43 years old female presented in the ER with chief complaint of headache. Patient reports she has been tested positive for COVID-19 almost 5 days ago, started to feel better and this evening she started to have fever 101 and headache, took Tylenol and temperature is improved. Reports generalized headache without blurry vision, numbness tingling or focal weakness. Denies any associated nausea vomiting. Does have diarrhea since she has COVID-19 few days ago. He has nonfocal neuro exam throughout stay in the ER. No nuchal rigidity. Lungs bilateral clear to auscultation. She is afebrile here. She is offered work-up but does not want anything done but symptomatic relief of her headache. She does have history of migraine and thinks its similar to that. Does not think this is the worst headache of her life. She is given Toradol Reglan and Benadryl, on reevaluation her headache is improved. She is advised symptomatic care and outpatient follow-up. Discussed signs symptoms of worsening needing return to ER which she seems understanding. Stable for discharge. Blood Culture(s) Obtained: No Antibiotics given: No Counseled pt/family regarding: diagnosis, need for follow-up - Departure Departure Disposition: Home Clinical Impression: Headache, COVID-19 Condition: Stable Critical Care Time: No Referrals: TORRES MUÑOZ MD [Primary Care Provider] - Follow up with PCP 1 day Instructions: Headache, Adult (DC), COVID-19 (DC) Additional Instructions: Take Tylenol/ibuprofen as needed. Drink plenty of fluids to keep yourself well- hydrated. Follow-up with primary care for reevaluation. Follow contact/droplet precautions for COVID-19. Return to ER for intractable headache, numbness tingling focal weakness etc.
[2023-04-13 21:44] VITALS: RESP 20
[2023-04-13 22:14] VITALS: BP 112/57; PULSE 77; O2SAT 98
== END 2023-04-13 22:13 | disposition home or self-care (01) ==
LOC: ED 20:20
DX: U07.1 COVID-19 (principal); R51.9 Headache, unspecified; R50.9 Fever, unspecified; I10 Essential (primary) hypertension; Z79.899 Other long term (current) drug therapy; Z28.310 Unvaccinated for COVID-19
CPT/HCPCS: 96372; 99283; J1200; J1885

== ENCOUNTER 2023-07-07 14:34 | Emergency (ER) | payer OTHER ==
[2023-07-07] MEDS ORDERED: XYLOCAINE 1% HCL 20 ML MDV IJ ONE (14:35)
[2023-07-07 15:13] VITALS: RESP 17; TEMP 98.2
[2023-07-07 15:40] LABS: HCG URINE TEST NEGATIVE (NEGATIVE)
[2023-07-07] MEDS ORDERED: TORAdol 30 mg Injection IM ONE (15:58)
[2023-07-07 16:03] LABS: Appearance Turbid (Clear); Leukocyte Esterase Large (Negative); Nitrite Positive (Negative); Protein,Urine Dip 300 (Negative); Specific Gravity 1.015 (1.005-1.030)
[2023-07-07 16:04] LABS: Bacteria Few /HPF (None Seen); Bilirubin Large (Negative); Blood Large (Negative); Epithelial Cells Rare /HPF (None Seen); Glucose, Urine 250 mg/dL (Negative); Ketones 15 (Negative); RBC 21-50 /HPF (0-5); Urobilinogen >=8.0 mg/dL (0.2); WBC 21-50 /HPF (0-5)
[2023-07-07 16:05] LABS: ADD URINE CULTURE? YES (NO)
[2023-07-07] MEDS ORDERED: TORAdol 30 mg Injection ONE (16:05)
[2023-07-07 16:08] VITALS: O2SAT 96
--- NOTE | 2023-07-07 16:36 | XRAY ---
Indication: Left costophrenic angle pain. Pelvic pressure. Multiple contiguous axial images obtained through the abdomen and pelvis without contrast. Comparison: None Lung bases clear. Heart not enlarged. Small hiatal hernia. Noncontrasted stomach and bowel loops appear nonobstructed normal appearing appendix. Previous cholecystectomy. No free fluid/air. Remaining liver, pancreas, spleen, adrenal glands, kidneys, ureters, bladder, and uterus are unremarkable for noncontrast exam. Minimal aortoiliac calcifications without AAA. Osseous structures intact with mild lower lumbar degenerative changes and minimal levoscoliosis centered at L4. No ventral or inguinal hernias. Impression: 1. Hiatal hernia, arteriosclerotic disease, and chronic bony findings. 2. Remaining CT abdomen/pelvis without contrast exam is normal.
--- NOTE | 2023-07-07 17:01 | ERPHSYRPT ---
- History of Present Illness Historian: patient Exam Limitations: no limitations Patient Subjective Stated Complaint: Pt reports she has been having low pelvic pain on the left side for approx two weeks, went to [facility] and did a self vaginal swab and was told she has a bacterial infection and placed on flagyl which she is has currently been taking for three days. Patient reports last night she started having left lower back pain that wraps around into left lower abdomen. Triage Nursing Assessment: Pt alert and oriented x3. Respirations easy/nonlabored. Skin w/p/d. Abdomen soft/round. No obvious deformities/contusions to lower back. Physician History: 43-year-old female with left costovertebral angle pain x1 day. Pain is 9 out of 10, sharp, and nothing makes it better or worse. Pain radiates to her left inguinal area. She has dysuria and increased frequency. She denies hematuria but is currently on her period. She has nausea without vomiting, diarrhea, or fever. Patient was seen in urgent care several days ago and diagnosed with bacterial vaginosis and started on Flagyl. She states that she has never had this pain before. Timing/Duration: yesterday Activities at Onset: rest Quality: sharpness Abdominal Pain Onset Location: LLQ, flank Severity of Pain-Max: severe Severity of Pain-Current: severe Modifying Factors: Improves With: nothing Associated Symptoms: back, nausea Previous symptoms: no prior history Allergies/Adverse Reactions: Penicillins Allergy (Severe, Verified 07/07/23 15:08) Anaphylactic Reaction Home Medications: Sertraline HCl 50 mg [Zoloft 50 mg Tablet] 100 mg PO DAILY 01/01/21 [History] Lisinopril/Hydrochlorothiazide [Lisinopril-Hctz 10-12.5 mg Tab] 1 each PO DAILY 01/11/21 [History] Famotidine [Pepcid] 40 mg PO DAILY 11/11/21 [History] Hx Tetanus, Diphtheria Vaccination/Date Given: Yes Hx Influenza Vaccination/Date Given: No Hx Pneumococcal Vaccination/Date Given: No Travel Risk - International Travel Have you traveled outside of the country in past 3 weeks: No - Coronavirus Screening Are you exhibiting any of the following symptoms?: No Close contact with a COVID-19 positive Pt in past 14-21 Days: No - Vaccine Status Have you recieved a Covid-19 vaccination: No - Review of Systems Constitutional: No Symptoms Eyes: No Symptoms Ears, Nose, & Throat: No Symptoms Respiratory: No Symptoms Cardiac: No Symptoms Abdominal/Gastrointestinal: No Symptoms, Nausea Genitourinary Symptoms: No Symptoms, Dysuria, Frequency Musculoskeletal: No Symptoms Skin: No Symptoms Neurological: No Symptoms Psychological: No Symptoms Endocrine: No Symptoms Hematologic/Lymphatic: No Symptoms Immunological/Allergic: No Symptoms - Past Medical History Pertinent Past Medical History: Yes Neurological History: No Pertinent History ENT History: No Pertinent History Cardiac History: Hypertension Respiratory History: No Pertinent History Endocrine Medical History: No Pertinent History Musculoskeletal History: No Pertinent History GI Medical History: GERD, Gallbladder Disease History: No Pertinent History Psycho-Social History: Depression Female Reproductive Disorders: No Pertinent History - Past Surgical History Past Surgical History: Yes Neuro Surgical History: No Pertinent History Cardiac: No Pertinent History Respiratory: No Pertinent History Gastrointestinal: Cholecystectomy Genitourinary: No Pertinent History Musculoskeletal: No Pertinent History Female Surgical History: Section Other Surgical History: 2 c-sections, Lymph nodes removed from neck( related to infection per pt) - Social History Smoking Status: Former smoker Exposure to second hand smoke: Yes Drug Use: none Patient Lives Alone: No Significant Family History: no pertinent family hx - Female History Hx Last Menstrual Period: 07/06/23 Hx Now: No - Nursing Vital Signs Nursing Vital Signs: Initial Vital Signs Temperature 98.2 F 07/07/23 15:01 Pulse Rate 77 07/07/23 15:01 Respiratory Rate 17 07/07/23 15:01 Blood Pressure 128/73 07/07/23 15:01 O2 Sat by Pulse Oximetry 97 07/07/23 15:01 Pain Scale Pain Intensity [Lower Back] 9 Pain Intensity 4 Vital signs within normal limits. - Physical Exam General Appearance: no apparent distress (Patient in no apparent distress but she does have some moderate pain.) Eye Exam: PERRL/EOMI, eyes nml inspection Ears, Nose, Throat Exam: normal ENT inspection, TMs normal, pharynx normal, moist mucous membranes Neck Exam: normal inspection (C-spine nontender to palpation) Respiratory Exam: normal breath sounds (Lungs clear to auscultation bilaterally.) Cardiovascular Exam: regular rate/rhythm (Regular rate rhythm no heaves gallops murmurs rubs) Gastrointestinal/Abdomen Exam: soft (Obese, soft, mild tenderness palpation left lower quadrant.) Pelvic Exam: not done Back Exam: CVA tenderness (Patient with moderate costovertebral angle tenderness to palpation) Extremity Exam: normal inspection, normal range of motion Neurologic Exam: alert, 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, cooperative, utility mechanic II-XII nml as tested, normal mood/affect, nml cerebellar function, nml station & gait, sensation nml Skin Exam: normal color Lymphatic Exam: No adenopathy SpO2 Interpretation: normal SpO2: 96 O2 Delivery: Room Air - Course Nursing assessment & vital signs reviewed: Yes - CT Exams Abdomen/Pelvis CT Interpretation: Discussed w/radiologist (CT abdomen pel without contrast demonstrates hiatal hernia without any other acute pathology) Ordered Tests: Active Orders 24 hr Category Date Time Status ABDOMEN AND PELVIS W/0 CONTRAS [CT] Stat Exams 07/07/23 15:58 Completed CULTURE,URINE Stat Lab 07/07/23 15:23 Received HCG QUALITATIVE, URINE Stat Lab 07/07/23 15:23 Completed UA W/RFX UR CULTURE Stat Lab 07/07/23 15:23 Completed Medication Summary Discontinued Medications Generic Name Dose Route Start Last Admin Trade Name Lisbeth PRN Reason Stop Dose Admin Hydrocodone Bitart/Acetaminophen 1 tablet 07/07/23 17:04 07/07/23 17:11 Hydrocodone/Acetamin 10-325 Mg Tablet PO 07/07/23 17:05 1 tablet ONCE ONE Administration Hydrocodone Bitart/Acetaminophen Confirm 07/07/23 17:06 Hydrocodone/Acetamin 10-325 Mg Tablet Administered 07/07/23 17:07 Dose 1 tablet .ROUTE .STK-MED ONE Ceftriaxone Sodium 1,000 mg 07/07/23 17:02 07/07/23 17:11 Ceftriaxone Sodium 1000 Mg Inj Vial IM 07/07/23 17:03 1,000 mg STAT ONE Administration Ceftriaxone Sodium Confirm 07/07/23 17:07 Ceftriaxone Sodium 1000 Mg Inj Vial Administered 07/07/23 17:08 Dose 1,000 mg .ROUTE .STK-MED ONE Ketorolac Tromethamine 30 mg 07/07/23 15:58 07/07/23 16:08 Ketorolac Tromethamine 30 Mg/Ml Inj IM 07/07/23 15:59 30 mg STAT ONE Administration Ketorolac Tromethamine Confirm 07/07/23 16:05 Ketorolac Tromethamine 30 Mg/Ml Inj Administered 07/07/23 16:06 Dose 30 mg .ROUTE .STK-MED ONE Lab/Rad Data: Laboratory Results 07/07/23 07/07/23 Range/Units 15:23 15:23 Urine Color [place] A (Yellow) Urine Appearance Turbid A (Clear) Urine pH 5.0 (4.6-8.0) Ur Specific [place] 1.015 (1.005-1.030) Urine Protein 300 A (Negative) Urine Glucose (UA) 250 A (Negative) mg/dL Urine Ketones 15 A (Negative) Urine Blood Large A (Negative) Urine Nitrite Positive A (Negative) Urine Bilirubin Large A (Negative) Urine Urobilinogen >=8.0 A (0.2) mg/dL Ur Leukocyte Esterase Large A (Negative) Urine Microscopic RBC 21-50 A (0-5) /HPF Urine Microscopic WBC 21-50 A (0-5) /HPF Ur Epithelial Cells Rare (None Seen) /HPF Urine Bacteria Few A (None Seen) /HPF Urine Culture Reflexed YES (NO) Urine HCG, Qual NEGATIVE (NEGATIVE) - Progress Progress: improved Progress Note: 07/07/23 18:07 Nursing note and vital signs reviewed. No food or housing insecurities noted. Urinalysis result reviewed and shared with patient. CT scan result reviewed and shared with patient. 07/07/23 18:07 30 mg IM Toradol with mild relief of pain. 1 g IM Rocephin. [place] 10/325 p.o. x1. Patient has a UTI without evidence of uterolithiasis at this time. She is also afebrile without any evidence of pyelonephritis this time. She will be treated as an outpatient with 750 mg of p.o. Levaquin daily x5 days. Patient advised to return to the ER for increasing pain or temperature greater 100.5. Prescription for Percocet 5/325 for 4 pills E prescribe to [facility]. Patient advised not to take her tramadol when taking her Percocet. She was also advised to take a stool softener with the Percocet. 07/07/23 18:10 Patient was also on her period when she gave a urine specimen which most likely accounts for the amount of blood in it. Counseled pt/family regarding: lab results, diagnosis, rad results Medical Desision Making - Diagnostic Testing Diagnostic test were ordered, analyzed, and reviewed by me: Yes Radiological Interpretation: Reviewed by me - Risk of complications The pt has a mod risk of morbidity or mortality based on: Need for prescription drug management - Departure Departure Disposition: Home Clinical Impression: UTI (urinary tract infection) Condition: Stable Critical Care Time: No Referrals: TORRES MUÑOZ MD [Primary Care Provider] - Follow up/PCP as directed Instructions: Urinary Tract Infection, Adult (DC) Additional Instructions: Start Levaquin once a day in the morning Pain meds as needed. Please use stool softener with pain meds. Follow-up with your family MD on Monday. Return to ER for increasing pain, temperature greater 100.5, or inability to swallow your antibiotic due to nausea vomiting etc. Prescriptions: Oxycodone HCl/Acetaminophen [Percocet 5-325 mg Tablet] 1 each PO Q6HPRN PRN #4 tablet MDD 4 tabs PRN Reason: Pain levoFLOXacin [Levofloxacin] 750 mg PO DAILY 5 Days #5 tablet
[2023-07-07] MEDS ORDERED: Rocephin 1000 MG INJ IM ONE (17:02)
[2023-07-07] MEDS ORDERED: HYDROCODONE-ACETAMIN 10-325 MG PO ONE (17:04)
[2023-07-07] MEDS ORDERED: HYDROCODONE-ACETAMIN 10-325 MG ONE (17:06)
[2023-07-07] MEDS ORDERED: Rocephin 1000 MG INJ ONE (17:07)
[2023-07-07 17:29] VITALS: BP 107/66; PULSE 69
== END 2023-07-07 17:38 | disposition home or self-care (01) ==
LOC: ED 14:34
DX: N39.0 Urinary tract infection, site not specified (principal); R10.9 Unspecified abdominal pain; R30.0 Dysuria; R35.0 Frequency of micturition; R11.0 Nausea; I10 Essential (primary) hypertension; Z79.891 Long term (current) use of opiate analgesic; Z79.899 Other long term (current) drug therapy; Z28.310 Unvaccinated for COVID-19
CPT/HCPCS: 36000; 74176; 81001; 81025; 87086; 96372; 99284; J0696; J1885; A9270-GY

== ENCOUNTER 2023-11-02 14:12 | Emergency (ER) | payer OTHER | END 2023-11-02 16:50 | disposition left against medical advice (07) | LOC: ED 14:12 | DX: Z53.8 Procedure and treatment not carried out for other reasons (principal) ==

== ENCOUNTER 2023-11-08 16:06 | Emergency (ER) | payer OTHER ==
--- NOTE | 2023-11-08 16:15 | ERPHSYRPT ---
- History of Present Illness Time Seen by Provider: 11/08/23 16:15 Source: patient, family Exam Limitations: no limitations Physician History: This 43-year-old obese white female patient Dr. Muñoz who presents with urinary retention, frequency and pressure with urinating as well as radiation of the discomfort to the patient's left flank area. Symptoms began yesterday and worsened today. Patient started herself on Azo [id number] medication without benefit. Patient has not had a fever. She has had no nausea vomiting or diarrhea symptoms. She denies shortness of breath and she denies chest pain. Patient states that she has had Rocephin injection in the past without any adverse reactions. Patient also states that she has received Cipro and Bactrim DS medication to treat urinary tract infections in the past. These have worked well for her. Timing/Duration: yesterday, worse Activites at Onset: none Quality: pressure, sharpness Onset Location: suprapubic Pain Radiation: left flank Severity of Pain-Max: mild Severity of Pain-Current: mild (Moderate moderate) Sexual intercourse history: non-contributory Modifying Factors: Improves With: nothing Associated Symptoms: urinary frequency, lower back pain Allergies/Adverse Reactions: Penicillins Allergy (Severe, Verified 11/08/23 16:32) Anaphylactic Reaction Home Medications: Lisinopril/Hydrochlorothiazide [Lisinopril-Hctz 20-12.5 mg Tab] 1 each PO DAILY 11/08/23 [History] Sertraline HCl 50 mg [Zoloft 50 mg Tablet] 1 ea DAILY 11/08/23 [History] Tramadol HCl 50 mg [Ultram 50 mg] 1 ea TID 11/08/23 [History] Hx Tetanus, Diphtheria Vaccination/Date Given: Yes Hx Influenza Vaccination/Date Given: No Hx Pneumococcal Vaccination/Date Given: No Travel Risk - International Travel Have you traveled outside of the country in past 3 weeks: No (Left side) - Coronavirus Screening Are you exhibiting any of the following symptoms?: No Close contact with a COVID-19 positive Pt in past 14-21 Days: No - Vaccine Status Have you recieved a Covid-19 vaccination: No - Review of Systems Constitutional: No Symptoms Eyes: No Symptoms Ears, Nose, & Throat: No Symptoms Respiratory: No Symptoms Cardiac: No Symptoms Abdominal/Gastrointestinal: No Symptoms Genitourinary Symptoms: Frequency, Urinary Retention, Flank Pain (Left side) Musculoskeletal: No Symptoms Skin: No Symptoms Neurological: No Symptoms Psychological: No Symptoms Endocrine: No Symptoms Hematologic/Lymphatic: No Symptoms Immunological/Allergic: No Symptoms All Other Systems: Reviewed and Negative - Past Medical History Pertinent Past Medical History: Yes Neurological History: No Pertinent History ENT History: No Pertinent History Cardiac History: Hypertension Respiratory History: No Pertinent History Endocrine Medical History: No Pertinent History Musculoskeletal History: No Pertinent History GI Medical History: GERD, Gallbladder Disease History: No Pertinent History Psycho-Social History: Depression Female Reproductive Disorders: No Pertinent History - Past Surgical History Past Surgical History: Yes Neuro Surgical History: No Pertinent History Cardiac: No Pertinent History Respiratory: No Pertinent History Gastrointestinal: Cholecystectomy Genitourinary: No Pertinent History Musculoskeletal: No Pertinent History Female Surgical History: Section Other Surgical History: 2 c-sections, Lymph nodes removed from neck( related to infection per pt) - Social History Smoking Status: Former smoker Exposure to second hand smoke: Yes Drug Use: none Patient Lives Alone: No Significant Family History: no pertinent family hx - Nursing Vital Signs Nursing Vital Signs: Pain Scale Pain Intensity 4 - Physical Exam General Appearance: no apparent distress, alert, anxiety, obese Eye Exam: PERRL/EOMI, eyes nml inspection Ears, Nose, Throat Exam: normal ENT inspection, moist mucous membranes Neck Exam: normal inspection, non-tender, supple, full range of motion Respiratory Exam: airway intact, No chest tenderness, No respiratory distress Gastrointestinal/Abdomen Exam: soft, normal bowel sounds, No tenderness, No guarding Pelvic Exam: not done Rectal Exam: not done Back Exam: normal inspection, normal range of motion, No CVA tenderness, No vertebral tenderness Extremity Exam: normal inspection, normal range of motion, pelvis stable Neurologic Exam: alert, 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, cooperative, regulatory affairs coordinator II-XII nml as tested, normal mood/affect, nml cerebellar function, nml station & gait, sensation nml Skin Exam: normal color, warm, dry Lymphatic Exam: No adenopathy SpO2 Interpretation: normal O2 Delivery: Room Air - Course Nursing assessment & vital signs reviewed: Yes Ordered Tests: Active Orders 24 hr Category Date Time Status CULTURE,URINE Stat Lab 11/08/23 16:32 Received UA W/RFX UR CULTURE Stat Lab 11/08/23 16:32 Completed Medication Summary Discontinued Medications Generic Name Dose Route Start Last Admin Trade Name Lisbeth PRN Reason Stop Dose Admin Ceftriaxone Sodium 1,000 mg 11/08/23 17:10 Ceftriaxone Sodium 1000 Mg Inj Vial IM 11/08/23 17:11 STAT ONE Lab/Rad Data: Laboratory Results 11/08/23 Range/Units 16:32 Urine Color [place] A (Yellow) Urine Appearance Clear (Clear) Urine pH 6.0 (4.6-8.0) Ur Specific [place] 1.025 (1.005-1.030) Urine Protein Negative (Negative) Urine Glucose (UA) Negative (Negative) mg/dL Urine Ketones Negative (Negative) Urine Blood Negative (Negative) Urine Nitrite Positive A (Negative) Urine Bilirubin Negative (Negative) Urine Urobilinogen 1.0 A (0.2) mg/dL Ur Leukocyte Esterase Negative (Negative) U Hyaline Cast (Auto) NONE SEEN (0-2) /LPF Urine Microscopic RBC 0-2 (0-5) /HPF Urine Microscopic WBC 0-2 (0-5) /HPF Ur Epithelial Cells Moderate A (None Seen) /HPF Urine Bacteria Few A (None Seen) /HPF Urine Culture Reflexed YES (NO) - Progress Progress: unchanged Air Movement: good Progress Note: 11/08/23 17:15 This patient's medical issue is 1 of low complexity. The level complex in the workup performed is based on review of the patient's past medical history, review the patient's medication list, review of patient drug allergy list, history present illness and physical findings on examination. The workup in this patient includes urinalysis. Antibiotics given: Yes Counseled pt/family regarding: lab results, diagnosis, need for follow-up Medical Desision Making - Diagnostic Testing Diagnostic test were ordered, analyzed, and reviewed by me: Yes - Risk of complications The pt has a mod risk of morbidity or mortality based on: Need for prescription drug management - Departure Departure Disposition: Home Clinical Impression: UTI (urinary tract infection) Condition: Stable Critical Care Time: No Referrals: TORRES MUÑOZ MD [Primary Care Provider] - Follow up/PCP as directed Additional Instructions: Drink plenty of fluids. If there are no contraindications, use Tylenol and ibuprofen for pain control. Take your antibiotics as prescribed. Follow-up with your primary care provider tomorrow, 11/09/2023 by phone to make arranges for follow-up appointment next 5 to 7 days. Prescriptions: Ciprofloxacin [Cipro 500 MG] 500 mg PO BID #14 tablet Phenazopyridine HCl 200 mg [Pyridium 200 mg] 200 mg PO TID #6 tablet
[2023-11-08 16:45] LABS: Appearance Clear (Clear); Bacteria Few /HPF (None Seen); Bilirubin Negative (Negative); Blood Negative (Negative); Epithelial Cells Moderate /HPF (None Seen); Glucose, Urine Negative (Negative); Hyaline Casts NONE SEEN /LPF (0-2); Ketones Negative (Negative); Leukocyte Esterase Negative (Negative); Nitrite Positive (Negative); Protein,Urine Dip Negative (Negative); RBC 0-2 /HPF (0-5); Specific Gravity 1.025 (1.005-1.030); WBC 0-2 /HPF (0-5)
[2023-11-08 16:48] LABS: ADD URINE CULTURE? YES (NO)
[2023-11-08] MEDS: Rocephin 1000 MG INJ IM ONE (17:12)
[2023-11-08] MEDS ORDERED: Rocephin 1000 MG INJ ONE (17:13)
[2023-11-08] MEDS ORDERED: XYLOCAINE 1% HCL 20 ML MDV ONE (17:14)
[2023-11-08 17:18] VITALS: BP 123/72; PULSE 80; RESP 16; O2SAT 96
== END 2023-11-08 17:27 | disposition home or self-care (01) ==
LOC: ED 16:06
DX: N39.0 Urinary tract infection, site not specified (principal); R33.9 Retention of urine, unspecified; R35.0 Frequency of micturition; I10 Essential (primary) hypertension; Z79.891 Long term (current) use of opiate analgesic; Z79.899 Other long term (current) drug therapy; Z28.310 Unvaccinated for COVID-19
CPT/HCPCS: 81001; 87086; 96372; 99283; J0696

== ENCOUNTER 2024-01-04 16:48 | Emergency (ER) | payer OTHER ==
[2024-01-04 17:13] VITALS: BP 114/57; RESP 18; TEMP 97.9
--- NOTE | 2024-01-04 17:33 | ERPHSYRPT ---
- History of Present Illness Time Seen by Provider: 01/04/24 16:54 Historian: patient Exam Limitations: no limitations Patient Subjective Stated Complaint: PT STATES SHE POSSIBLY HAS SWALLOWED A PIECE OF A PLASTIC FORK . SHE WAS EATING AND THEN NOTICED FORK WAS BROKEN. NO CO PAIN TO LOWER ABD AND LOOSE STOOLS Triage Nursing Assessment: PT ALERT, WALKED IN, RESP EASY,SKIN W/D/PABD LARGE ROUNDED,SOFT. MOVES ALL EXT WELL Physician History: 43-year-old female with history of hypertension, anxiety/depression presented in the ER with complaint of suprapubic area pain prior to arrival. Patient reports she was at [employer] class and all of a sudden she had a sharp pain 4/10 intensity with no significant relieving factor and it improved on its own and route to the ER. Patient reports currently more no pain while resting and minimal with palpation. Does have history of bladder issues in the past and has appointment with your scheduling manager next couple of days. Patient denies any urinary symptoms currently. She is also worried about as yesterday she was eating and noticed 1 prong of the fork was missing and she could not figure it out where it would have gone. She thinks she possibly swallowed it. No upper abdominal pain. No nausea or vomiting. She does have loose stool today. No history of constipation. No fever or chills reported. Allergies/Adverse Reactions: Penicillins Allergy (Severe, Verified 01/04/24 16:57) Anaphylactic Reaction Home Medications: Lisinopril/Hydrochlorothiazide [Lisinopril-Hctz 20-12.5 mg Tab] 1 each PO DAILY 11/08/23 [History] Sertraline HCl 50 mg [Zoloft 50 mg Tablet] 1 ea DAILY 11/08/23 [History] Hx Tetanus, Diphtheria Vaccination/Date Given: No Hx Influenza Vaccination/Date Given: No Hx Pneumococcal Vaccination/Date Given: No Immunizations Up to Date: Yes Travel Risk - International Travel Have you traveled outside of the country in past 3 weeks: No - Emerging Infectious Disease Are you exhibiting symptoms associated with any current EIDs: Yes Symptoms: Abdominal Pain - Review of Systems Constitutional: No Symptoms Ears, Nose, & Throat: No Symptoms Respiratory: No Symptoms Cardiac: No Symptoms Abdominal/Gastrointestinal: Abdominal Pain Genitourinary Symptoms: No Symptoms Musculoskeletal: No Symptoms Skin: No Symptoms Neurological: No Symptoms Psychological: Anxiety, Depression Endocrine: No Symptoms Hematologic/Lymphatic: No Symptoms Immunological/Allergic: No Symptoms - Past Medical History Pertinent Past Medical History: Yes Neurological History: No Pertinent History ENT History: No Pertinent History Cardiac History: Hypertension Respiratory History: No Pertinent History Endocrine Medical History: No Pertinent History Musculoskeletal History: No Pertinent History GI Medical History: GERD, Gallbladder Disease History: No Pertinent History Psycho-Social History: Depression Female Reproductive Disorders: No Pertinent History - Past Surgical History Past Surgical History: Yes Neuro Surgical History: No Pertinent History Cardiac: No Pertinent History Respiratory: No Pertinent History Gastrointestinal: Cholecystectomy Genitourinary: No Pertinent History Musculoskeletal: No Pertinent History Female Surgical History: Section Other Surgical History: 2 c-sections, Lymph nodes removed from neck( related to infection per pt) Significant Family History: no pertinent family hx - Female History Hx Last Menstrual Period: MONDAY Hx Now: No - Social History Smoking Status: Never smoker Exposure to second hand smoke: No Drug Use: none Patient Lives Alone: No - Nursing Vital Signs Nursing Vital Signs: Initial Vital Signs Temperature 97.9 F 01/04/24 17:11 Pulse Rate 75 01/04/24 17:11 Respiratory Rate 18 01/04/24 17:11 Blood Pressure 114/57 01/04/24 17:11 O2 Sat by Pulse Oximetry 97 01/04/24 17:11 Pain Scale Pain Intensity 5 - Physical Exam General Appearance: no apparent distress, alert Eye Exam: PERRL/EOMI Ears, Nose, Throat Exam: normal ENT inspection Neck Exam: normal inspection, supple, full range of motion Respiratory Exam: normal breath sounds, lungs clear Cardiovascular Exam: regular rate/rhythm, normal heart sounds Gastrointestinal/Abdomen Exam: soft, normal bowel sounds, tenderness (Minimal suprapubic tenderness to deep palpation. No right or left lower quadrant tenderness at all.) Back Exam: normal inspection, normal range of motion, No CVA tenderness Extremity Exam: normal inspection, normal range of motion Neurologic Exam: alert, 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, cooperative, lead database administrator II-XII nml as tested Skin Exam: normal color SpO2 Interpretation: normal SpO2: 97 O2 Delivery: Room Air - Progress Progress: improved Progress Note: 01/04/24 17:31 43-year-old is evaluated in the ER for suprapubic area pain earlier when she was at [employer]. Patient pain is improved. Has minimal tenderness to deep palpation in the suprapubic area. No right or left lower quadrant tenderness. No CVA tenderness. Good bowel sounds in all 4 quadrants. Patient was worried about possible intake of fork prong. She is counseled that it is less likely she has any perforation. No peritoneal signs at all. She is offered to have CT imaging, blood work and urinalysis but she does not want to get anything done as her pain is resolved. Discussed with patient about risk of not having any workup done which could not only delay the diagnosis but also worsening of condition but she wants to go home. She is thoroughly counseled and is being discharged. Counseled pt/family regarding: diagnosis, need for follow-up - Departure Departure Disposition: Home Clinical Impression: Suprapubic pain, Ingestion of foreign body Condition: Stable Critical Care Time: No Referrals: TORRES MUÑOZ MD [Primary Care Provider] - Follow up with PCP 1 day Instructions: Removal of Foreign Body, Swallowed, Adult, Severe Abdominal Pain, Adult (DC) Additional Instructions: Take Tylenol/ibuprofen as needed. Follow-up with primary care for reevaluation. Keep appointment with urogynecology. Return to ER for any worsening pain, intractable vomiting, fever chills etc.
[2024-01-04 17:54] VITALS: PULSE 78; O2SAT 98
== END 2024-01-04 18:00 | disposition home or self-care (01) ==
LOC: ED 16:48
DX: R10.30 Lower abdominal pain, unspecified (principal); T18.9XXA Foreign body of alimentary tract, part unspecified, initial encounter; W44.B9XA Other plastic object entering into or through a natural orifice, initial encounter; I10 Essential (primary) hypertension; Z79.899 Other long term (current) drug therapy
CPT/HCPCS: 99281

== ENCOUNTER 2024-07-23 20:05 | Observation (INO) | payer OTHER ==
[2024-07-23 20:24] LABS: Absolute Neutrophil Ct (ANC) 4.01 x10^3/uL (1.56-6.13); BASOPHIL % 0.5 % (0.1-1.2); Basophil (Absolute #) 0.04 x10^3/uL (0.01-0.08); Eosinophil % 1.4 % (0.7-5.8); Eosinophil (Absolute #) 0.11 x10^3/uL (0.04-0.36); Hematocrit 38.4 % (34.1-44.9); Hemoglobin 12.8 g/dL (11.2-15.7); IMMATURE GRAN # 0.03 x10^3u/L (0.001-0.031); IMMATURE GRAN % 0.4 % (0.001-0.429); Lymphocyte (Absolute #) 3.17 x10^3/uL (1.18-3.74); Lymphocytes % 40.1 % (19.3-51.7); Mean Cell Volume 87.1 fL (79.4-94.8); Mean Corpuscular Hgb Concent. 33.3 g/dL (32.2-35.5); Monocyte (Absolute #) 0.54 x10^3/uL (0.24-0.86); Monocytes % 6.8 % (4.7-12.5); Neutrophil % 50.8 % (34.0-71.1); Platelet Count 273 x10^3/uL (182-369); Red Blood Count 4.41 x10^6/uL (3.93-5.22); Red Cell Distribution Width 12.3 % (11.7-14.4); White Blood Count 7.9 x10^3/uL (3.98-10.04)
--- NOTE | 2024-07-23 20:29 | ERPHSYRPT ---
- History of Present Illness Time Seen by Provider: 07/23/24 21:51 Source: patient Exam Limitations: no limitations Patient Subjective Stated Complaint: C/O tingling to left side of face that started around 11am today while at work. No physical exertion. Patient indicates that this is what happens when she is anxious but that it normally resolves by now and it hasn't resolved. States now having some dull discomfort in her chest. Triage Nursing Assessment: Patient ambulated back to ER without difficulties. She is alert and oriented; anxious. Skin tone normal. GAUTHIER WNL. No SOB. No cough. Physician History: 44-year-old female presents to our emergency department for evaluation of tingling to her left face left arm and some chest discomfort that started this morning at approximately 11 AM. Patient states symptoms have been continuous. Upon arrival to our ED patient admitted she was very anxious. However her sym ptoms are likely not related to anxiety. No associated nausea vomiting or diaphoresis. Patient denies a history of the same. Patient otherwise feels well. She voices no other complaints or concerns at this time. Patient had 2 baby aspirin 2 days shortly after the onset of symptoms. Portions of this note were created with voice recognition technology. There may be grammatical, spelling, punctuation or sound alike errors Timing/Duration: today Severity: moderate Modifying Factors: Improves With: nothing Associated Symptoms: denies symptoms Allergies/Adverse Reactions: Penicillins Allergy (Severe, Verified 07/23/24 20:12) Anaphylactic Reaction Home Medications: Lisinopril/Hydrochlorothiazide [Lisinopril-Hctz 20-12.5 mg Tab] 1 each PO DAILY 11/08/23 [History] Sertraline HCl 50 mg [Zoloft 50 mg Tablet] 1 ea PO DAILY 11/08/23 [History] Cholecalciferol (Vitamin D3) [Vitamin D3] 1,250 mcg PO WEEKLY 07/23/24 [History] Exenatide Microspheres [Bydureon Bcise] 2 mg SQ WEEKLY 07/23/24 [History] Tramadol HCl 50 mg [Ultram 50 mg] 50 mg PO QID PRN 07/23/24 [History] hydrOXYzine HCL [Hydroxyzine HCl] 50 mg PO TID PRN 07/23/24 [History] Hx Tetanus, Diphtheria Vaccination/Date Given: Yes Hx Influenza Vaccination/Date Given: No Hx Pneumococcal Vaccination/Date Given: No Immunizations Up to Date: Yes Travel Risk - International Travel Have you traveled outside of the country in past 3 weeks: No - Emerging Infectious Disease Are you exhibiting symptoms associated with any current EIDs: No Symptoms: Abdominal Pain - Review of Systems Constitutional: No Symptoms, No Fever, No Chills Eyes: No Symptoms Ears, Nose, & Throat: No Symptoms Respiratory: No Symptoms, No Cough, No Dyspnea Cardiac: No Symptoms, No Chest Pain, No Edema, No Syncope Abdominal/Gastrointestinal: No Symptoms, No Abdominal Pain, No Nausea, No Vomiting, No Diarrhea Genitourinary Symptoms: No Symptoms, No Dysuria Musculoskeletal: No Symptoms, No Back Pain, No Neck Pain Skin: No Symptoms, No Rash Neurological: No Symptoms, No Dizziness, No Focal Weakness, No Sensory Changes Psychological: No Symptoms Endocrine: No Symptoms Hematologic/Lymphatic: No Symptoms Immunological/Allergic: No Symptoms All Other Systems: Reviewed and Negative - Past Medical History Pertinent Past Medical History: Yes Neurological History: No Pertinent History ENT History: No Pertinent History Cardiac History: Hypertension Respiratory History: No Pertinent History Endocrine Medical History: No Pertinent History Musculoskeletal History: No Pertinent History GI Medical History: GERD, Gallbladder Disease History: No Pertinent History Psycho-Social History: Anxiety, Depression Female Reproductive Disorders: No Pertinent History - Past Surgical History Past Surgical History: Yes Neuro Surgical History: No Pertinent History Cardiac: No Pertinent History Respiratory: No Pertinent History Gastrointestinal: Cholecystectomy Genitourinary: No Pertinent History Musculoskeletal: No Pertinent History Female Surgical History: Section Other Surgical History: 2 c-sections, Lymph nodes removed from neck (related to infection per pt) Significant Family History: no pertinent family hx - Female History Hx Last Menstrual Period: Just got off of it Hx Now: No - Social History Smoking Status: Never smoker Exposure to second hand smoke: No Drug Use: none Patient Lives Alone: No - Social Determinants of Health Will the patient participate in the screening: Yes Do you worry about a steady place to live?: No Do you have any problems with any of the following?: No known problems In the past 12 months,have you had to go without utilities?: No Transportation Issues: No Has anyone in your support network made you feel unsafe?: No Have you or anyone in your house had to go without enough: No - Nursing Vital Signs Nursing Vital Signs: Initial Vital Signs Temperature 97.9 F 07/23/24 20:14 Pulse Rate 76 07/23/24 20:14 Respiratory Rate 18 07/23/24 20:14 Blood Pressure 123/72 07/23/24 20:14 O2 Sat by Pulse Oximetry 99 07/23/24 20:14 Pain Scale Pain Intensity 4 - Physical Exam General Appearance: no apparent distress, alert Eye Exam: PERRL/EOMI, eyes nml inspection Ears, Nose, Throat Exam: normal ENT inspection, moist mucous membranes Neck Exam: normal inspection, non-tender, supple, full range of motion Respiratory Exam: normal breath sounds, lungs clear, airway intact, No respiratory distress Cardiovascular Exam: regular rate/rhythm, normal heart sounds, normal peripheral pulses Gastrointestinal/Abdomen Exam: soft, normal bowel sounds, No tenderness, No mass Back Exam: normal inspection, normal range of motion, No CVA tenderness, No vertebral tenderness Extremity Exam: normal inspection, normal range of motion, pelvis stable Neurologic Exam: alert, 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, cooperative, normal mood/affect, sensation nml, No motor deficits Skin Exam: normal color, warm, dry, No rash Lymphatic Exam: No adenopathy SpO2 Interpretation: normal SpO2: 99 O2 Delivery: Room Air - Course Nursing assessment & vital signs reviewed: Yes EKG Interpreted by Me: RATE (73), Sinus Rhythm, NORMAL AXIS, NORMAL INTERVALS, NORMAL QRS - CT Exams Head CT Interpretation: Tele-radiologist Report (CT head negative for acute intracranial pathology) Ordered Tests: Active Orders 24 hr Category Date Time Status Investigator Operator STAT Care 07/23/24 20:13 Active EKG-ER Only STAT Care 07/23/24 20:12 Active IV Insertion STAT Care 07/23/24 20:12 Active Pulse Oximetry (ED) STAT Care 07/23/24 20:12 Active HEAD WITHOUT CONTRAST [CT] Stat Exams 07/23/24 20:14 Taken CBC W DIFF Stat Lab 07/23/24 20:20 Completed CMP Stat Lab 07/23/24 20:20 Completed HCG QUALITATIVE, URINE Stat Lab 07/23/24 20:13 Completed TROPONIN Q4H Lab 07/23/24 20:20 Completed TROPONIN Q4H Lab 07/24/24 00:15 Ordered TROPONIN Q4H Lab 07/24/24 04:15 Ordered UA W/RFX UR CULTURE Stat Lab 07/23/24 20:13 Completed Transfer Order Routine Transfer 07/23/24 Ordered Medication Summary Generic Name Dose Route Start Last Admin Trade Name Lisbeth PRN Reason Stop Dose Admin Sodium Chloride 1,000 mls @ 75 mls/hr 07/23/24 22:00 Sodium Chloride 0.9% 1000 Ml IV 08/22/24 21:59 .[id number] DELFINO Discontinued Medications Generic Name Dose Route Start Last Admin Trade Name Lisbeth PRN Reason Stop Dose Admin Nitroglycerin 1 gm 07/23/24 22:04 Nitroglycerin 1 Gm Packet TOP 07/23/24 22:05 STAT ONE Potassium Chloride 40 meq 07/23/24 21:28 07/23/24 21:45 Potassium Chloride Tab 10 Meq Tab PO 07/23/24 21:29 40 meq STAT ONE Administration Potassium Chloride Confirm 07/23/24 21:38 Potassium Chloride Tab 10 Meq Tab Administered 07/23/24 21:39 Dose 40 meq .ROUTE .STK-MED ONE Lab/Rad Data: Laboratory Result Diagrams 07/23/24 20:20 07/23/24 20:20 Laboratory Results 07/23/24 07/23/24 07/23/24 Range/Units 20:20 20:20 20:20 WBC 7.9 (3.98-10.04) x10^3/uL RBC 4.41 (3.93-5.22) x10^6/uL Hgb 12.8 (11.2-15.7) g/dL Hct 38.4 (34.1-44.9) % MCV 87.1 (79.4-94.8) fL MCH 29.0 (25.6-32.2) pg MCHC 33.3 (32.2-35.5) g/dL RDW 12.3 (11.7-14.4) % Plt Count 273 (182-369) x10^3/uL MPV 9.0 L (9.4-12.3) fL Gran % 50.8 (34.0-71.1) % Immature Gran % (Auto) 0.4 (0.001-0.429) % Nucleat RBC Rel Count 0.0 (0.00-0.2) % Eos # (Auto) 0.11 (0.04-0.36) x10^3/uL Immature Gran # (Auto) 0.03 (0.001-0.031) x10^3u/L Absolute Lymphs (auto) 3.17 (1.18-3.74) x10^3/uL Absolute Monos (auto) 0.54 (0.24-0.86) x10^3/uL Absolute Nucleated RBC 0.00 (0.00-0.012) x10^3u/L Lymphocytes % 40.1 (19.3-51.7) % Monocytes % 6.8 (4.7-12.5) % Eosinophils % 1.4 (0.7-5.8) % Basophils % 0.5 (0.1-1.2) % Absolute Granulocytes 4.01 (1.56-6.13) x10^3/uL Basophils # 0.04 (0.01-0.08) x10^3/uL Sodium 140 (135-145) mmol/L Potassium 3.4 L (3.5-5.1) mmol/L Chloride 109 H (98-107) mmol/L Carbon Dioxide 21 L (22-30) mmol/L Anion Gap 14.1 (5-15) MEQ/L BUN 14 (7-17) mg/dL Creatinine 0.78 (0.52-1.04) mg/dL Estimated GFR 95.4 ML/MIN Glucose 122 H (74-106) mg/dL Calcium 9.3 (8.4-10.2) mg/dL Total Bilirubin 0.20 (0.2-1.3) mg/dL AST 25 (14-36) U/L ALT 28 (0-35) U/L Alkaline Phosphatase 77 (38-126) U/L Troponin I < 0.012 (0.000-0.033) ng/mL Serum Total Protein 7.2 (6.3-8.2) g/dL Albumin 4.3 (3.5-5.0) g/dL Urine Color (Yellow) Urine Appearance (Clear) Urine pH (4.6-8.0) Ur Specific [place] (1.005-1.030) Urine Protein (Negative) Urine Glucose (UA) (Negative) mg/dL Urine Ketones (Negative) Urine Blood (Negative) Urine Nitrite (Negative) Urine Bilirubin (Negative) Urine Urobilinogen (0.2) mg/dL Ur Leukocyte Esterase (Negative) U Hyaline Cast (Auto) (0-2) /LPF Urine Microscopic RBC (0-5) /HPF Urine Microscopic WBC (0-5) /HPF Ur Epithelial Cells (None Seen) /HPF Urine Bacteria (None Seen) /HPF Urine Culture Reflexed (NO) Urine HCG, Qual (NEGATIVE) 07/23/24 07/23/24 Range/Units 20:13 20:13 WBC (3.98-10.04) x10^3/uL RBC (3.93-5.22) x10^6/uL Hgb (11.2-15.7) g/dL Hct (34.1-44.9) % MCV (79.4-94.8) fL MCH (25.6-32.2) pg MCHC (32.2-35.5) g/dL RDW (11.7-14.4) % Plt Count (182-369) x10^3/uL MPV (9.4-12.3) fL Gran % (34.0-71.1) % Immature Gran % (Auto) (0.001-0.429) % Nucleat RBC Rel Count (0.00-0.2) % Eos # (Auto) (0.04-0.36) x10^3/uL Immature Gran # (Auto) (0.001-0.031) x10^3u/L Absolute Lymphs (auto) (1.18-3.74) x10^3/uL Absolute Monos (auto) (0.24-0.86) x10^3/uL Absolute Nucleated RBC (0.00-0.012) x10^3u/L Lymphocytes % (19.3-51.7) % Monocytes % (4.7-12.5) % Eosinophils % (0.7-5.8) % Basophils % (0.1-1.2) % Absolute Granulocytes (1.56-6.13) x10^3/uL Basophils # (0.01-0.08) x10^3/uL Sodium (135-145) mmol/L Potassium (3.5-5.1) mmol/L Chloride (98-107) mmol/L Carbon Dioxide (22-30) mmol/L Anion Gap (5-15) MEQ/L BUN (7-17) mg/dL Creatinine (0.52-1.04) mg/dL Estimated GFR ML/MIN Glucose (74-106) mg/dL Calcium (8.4-10.2) mg/dL Total Bilirubin (0.2-1.3) mg/dL AST (14-36) U/L ALT (0-35) U/L Alkaline Phosphatase (38-126) U/L Troponin I (0.000-0.033) ng/mL Serum Total Protein (6.3-8.2) g/dL Albumin (3.5-5.0) g/dL Urine Color Yellow (Yellow) Urine Appearance Clear (Clear) Urine pH 6.5 (4.6-8.0) Ur Specific [place] 1.025 (1.005-1.030) Urine Protein Negative (Negative) Urine Glucose (UA) Negative (Negative) mg/dL Urine Ketones Negative (Negative) Urine Blood Negative (Negative) Urine Nitrite Negative (Negative) Urine Bilirubin Negative (Negative) Urine Urobilinogen 0.2 (0.2) mg/dL Ur Leukocyte Esterase Negative (Negative) U Hyaline Cast (Auto) NONE SEEN (0-2) /LPF Urine Microscopic RBC 0-2 (0-5) /HPF Urine Microscopic WBC 0-2 (0-5) /HPF Ur Epithelial Cells Few (None Seen) /HPF Urine Bacteria Rare A (None Seen) /HPF Urine Culture Reflexed NO (NO) Urine HCG, Qual NEGATIVE (NEGATIVE) - Progress Progress: improved Progress Note: 44-year-old female BMI of 43.3 presents to emergency department for evaluation of tingling to the left face left arm. Tingling associated with chest pain. Physical exam otherwise nonremarkable. CT head negative for acute intracranial pathology. Potassium slightly low at 3.4. Oral potassium replacement administered. Patient had 2 baby aspirin today. Initial troponin negative. EKG sinus rhythm. In light of patient's paresthesia has been consulted teleneuro. Teleneuro evaluated patient advised admission. Patient reassessed. Patient continues to feel chest pressure. Nitropaste administered. IV fluids administered. Patient will be admitted for further evaluation and treatment. Case discussed with Dr. Kelsey Cordero who accepts admission to observation at 10 PM. Plan of care discussed with patient. She agrees to admission at [facility] for further evaluation and treatment. Portions of this note were created with voice recognition technology. There may be grammatical, spelling, punctuation or sound alike errors Complexity of problem addressed is moderate acute complicated. No critical care time. Complexity of data reviewed and analyzed is extensive. Test ordered chest reviewed results analyzed and correlated clinically with history and physical exam. Evaluation discussed with neurologist. Management discussed w [facility] hospitalist. Risk of complication and or risk of morbidity/mortality of patient management is high. Patient requires hospitalization for further evaluation and treatment. Vital stable. Time spent to admit patient is approximately 20 minutes. Plan of care established for shared decision making. No social determinants of health present to impede follow-up. Portions of this note were created with voice recognition technology. There may be grammatical, spelling, punctuation or sound alike errors 07/23/24 22:04 Counseled pt/family regarding: lab results, diagnosis, rad results - Departure Departure Disposition: Observation Clinical Impression: Left face and left arm tingling, TIA (transient ischemic attack), Chest pain, Hypokalemia Condition: Stable Critical Care Time: No Referrals: TORRES MUÑOZ MD [Primary Care Provider] - Follow up/PCP as directed
[2024-07-23 20:45] LABS: ALBUMIN 4.3 g/dL (3.5-5.0); ANION GAP 14.1 MEQ/L (5-15); BILIRUBIN,TOTAL 0.2 mg/dL (0.2-1.3); Calcium 9.3 mg/dL (8.4-10.2); Creatinine 1 0.78 mg/dL (0.52-1.04); EST GLOMERULAR FILTRATION RATE 95.4 ML/MIN; Potassium 3.4 mmol/L (3.5-5.1); Total Protein 7.2 g/dL (6.3-8.2)
[2024-07-23 20:45] LABS: HCG URINE TEST NEGATIVE (NEGATIVE)
[2024-07-23 20:49] LABS: Appearance Clear (Clear); Bacteria Rare /HPF (None Seen); Bilirubin Negative (Negative); Blood Negative (Negative); Epithelial Cells Few /HPF (None Seen); Glucose, Urine Negative (Negative); Hyaline Casts NONE SEEN /LPF (0-2); Ketones Negative (Negative); Leukocyte Esterase Negative (Negative); Nitrite Negative (Negative); Ph 6.5 (4.6-8.0); Protein,Urine Dip Negative (Negative); RBC 0-2 /HPF (0-5); Specific Gravity 1.025 (1.005-1.030); Urobilinogen 0.2 mg/dL (0.2); WBC 0-2 /HPF (0-5)
[2024-07-23] MEDS ORDERED: Klor Con ONE (21:38)
[2024-07-23] MEDS: Klor Con PO ONE (21:45)
--- NOTE | 2024-07-23 22:21 | PCM.HP ---
History of Present Illness - Chief Complaint Chief Complaint: TIA concern History of Present Illness: 44F presented with tingling of the left side of the face around 11 am and chest discomfort. She appeared very anxious in the ED and a CTH was negative. VSS, no focal exam findings in the ED. Neurology recommended an MRI of the brain to evaluate for TIA. I spoke with the neurologist who felt she should be admitted overnight for a TIA work up (lipid, a1c, echo with bubble) and that the MRI of the brain can be done as an outpatient. Pt denies fevers, chills, nausea, vomiting, diarrhea. No prior history of these symptoms. - Review of Systems Constitutional: No Fever, No Chills Eyes: No Symptoms Ears, Nose, & Throat: No Symptoms Respiratory: No Cough, No Short Of Breath Cardiac: No Chest Pain, No Edema, No Syncope Abdominal/Gastrointestinal: No Abdominal Pain, No Nausea, No Vomiting, No Diarrhea Genitourinary Symptoms: No Dysuria Musculoskeletal: No Back Pain, No Neck Pain Skin: No Rash Neurological: No Dizziness, No Focal Weakness, No Sensory Changes Psychological: No Symptoms Endocrine: No Symptoms Hematologic/Lymphatic: No Symptoms Immunological/Allergic: No Symptoms Medications & Allergies Home Medications: Home Medication List Lisinopril/Hydrochlorothiazide [Lisinopril-Hctz 20-12.5 mg Tab] 1 each PO DAILY 11/08/23 [History Confirmed 07/23/24] Sertraline HCl 50 mg [Zoloft 50 mg Tablet] 1 ea PO DAILY 11/08/23 [History Confirmed 07/23/24] Cholecalciferol (Vitamin D3) [Vitamin D3] 1,250 mcg PO WEEKLY 07/23/24 [History Confirmed 07/23/24] Exenatide Microspheres [Bydureon Bcise] 2 mg SQ WEEKLY 07/23/24 [History Confirmed 07/23/24] Tramadol HCl 50 mg [Ultram 50 mg] 50 mg PO QID PRN 07/23/24 [History Confirmed 07/23/24] hydrOXYzine HCL [Hydroxyzine HCl] 50 mg PO TID PRN 07/23/24 [History Confirmed 07/23/24] Allergies/Adverse Reactions: Allergies Allergy/AdvReac Type Severity Reaction Status Date / Time Penicillins Allergy Severe Anaphylactic Verified 07/23/24 20:12 Reaction - Past Medical History Past Medical History: Yes Neurological History: No Pertinent History ENT History: No Pertinent History Cardiac History: Hypertension Respiratory History: No Pertinent History Endocrine Medical History: No Pertinent History Musculoskelatal History: No Pertinent History GI Medical History: GERD, Gallbladder Disease History: No Pertinent History Pyscho-Social History: Anxiety, Depression Reproductive Disorders: No Pertinent History - Female History Hx Last Menstrual Period: Just got off of it Are you now?: No - Past Surgical History Past Surgical History: No Neuro Surgical History: No Pertinent History Cardiac History: No Pertinent History Respiratory Surgery: No Pertinent History GI Surgical History: Cholecystectomy Genitourinary Surgical Hx: No Pertinent History Musculskeletal Surgical Hx: No Pertinent History Female Surgical History: Section Other Surgical History: 2 c-sections, Lymph nodes removed from neck (related to infection per pt) Significant Family History: no pertinent family hx - Social History Smoking Status: Never smoker Exposure to second hand smoke: No Alcohol: None Drug Use: none - Social Determinants of Health Will the patient participate in the screening: Yes Do you worry about a steady place to live?: No Do you have any problems with any of the following?: No known problems In the past 12 months,have you had to go without utilities?: No Have you or anyone in your house had to go without enough: No Transportation Issues: No Has anyone in your support network made you feel unsafe?: No - Physical Exam Vital Signs: Vital Signs - 24 hr Temp Pulse Resp BP BP Pulse Ox 07/23/24 22:11 99 07/23/24 20:59 68 18 107/72 96 07/23/24 20:30 74 15 115/73 97 07/23/24 20:14 97.9 F 76 18 123/72 99 General Appearance: no apparent distress, alert Neurologic Exam: alert, 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, cooperative, normal mood/affect, nml cerebellar function, nml station & gait, sensation nml, No motor deficits Eye Exam: PERRL/EOMI, eyes nml inspection Ears, Nose, Throat Exam: normal ENT inspection, TMs normal, pharynx normal, moist mucous membranes Neck Exam: normal inspection, non-tender, supple, full range of motion Respiratory Exam: normal breath sounds, lungs clear, No respiratory distress Cardiovascular Exam: regular rate/rhythm, normal heart sounds, normal peripheral pulses Gastrointestinal/Abdomen Exam: soft, normal bowel sounds, No tenderness, No mass Back Exam: normal inspection, normal range of motion, No CVA tenderness, No vertebral tenderness Extremity Exam: normal inspection, normal range of motion, pelvis stable Skin Exam: normal color, warm, dry, No rash Lymphatic Exam: No adenopathy Results - Labs Lab/Micro Results: Lab Results-Last 24 Hours 07/23/24 07/23/24 07/23/24 Range/Units 20:13 20:13 20:20 WBC 7.9 (3.98-10.04) x10^3/uL RBC 4.41 (3.93-5.22) x10^6/uL Hgb 12.8 (11.2-15.7) g/dL Hct 38.4 (34.1-44.9) % MCV 87.1 (79.4-94.8) fL MCH 29.0 (25.6-32.2) pg MCHC 33.3 (32.2-35.5) g/dL RDW 12.3 (11.7-14.4) % Plt Count 273 (182-369) x10^3/uL MPV 9.0 L (9.4-12.3) fL Gran % 50.8 (34.0-71.1) % Immature Gran % (Auto) 0.4 (0.001-0.429) % Nucleat RBC Rel Count 0.0 (0.00-0.2) % Eos # (Auto) 0.11 (0.04-0.36) x10^3/uL Immature Gran # (Auto) 0.03 (0.001-0.031) x10^3u/L Absolute Lymphs (auto) 3.17 (1.18-3.74) x10^3/uL Absolute Monos (auto) 0.54 (0.24-0.86) x10^3/uL Absolute Nucleated RBC 0.00 (0.00-0.012) x10^3u/L Lymphocytes % 40.1 (19.3-51.7) % Monocytes % 6.8 (4.7-12.5) % Eosinophils % 1.4 (0.7-5.8) % Basophils % 0.5 (0.1-1.2) % Absolute Granulocytes 4.01 (1.56-6.13) x10^3/uL Basophils # 0.04 (0.01-0.08) x10^3/uL Sodium (135-145) mmol/L Potassium (3.5-5.1) mmol/L Chloride (98-107) mmol/L Carbon Dioxide (22-30) mmol/L Anion Gap (5-15) MEQ/L BUN (7-17) mg/dL Creatinine (0.52-1.04) mg/dL Estimated GFR ML/MIN Glucose (74-106) mg/dL Calcium (8.4-10.2) mg/dL Total Bilirubin (0.2-1.3) mg/dL AST (14-36) U/L ALT (0-35) U/L Alkaline Phosphatase (38-126) U/L Troponin I (0.000-0.033) ng/mL Serum Total Protein (6.3-8.2) g/dL Albumin (3.5-5.0) g/dL Urine Color Yellow (Yellow) Urine Appearance Clear (Clear) Urine pH 6.5 (4.6-8.0) Ur Specific [place] 1.025 (1.005-1.030) Urine Protein Negative (Negative) Urine Glucose (UA) Negative (Negative) mg/dL Urine Ketones Negative (Negative) Urine Blood Negative (Negative) Urine Nitrite Negative (Negative) Urine Bilirubin Negative (Negative) Urine Urobilinogen 0.2 (0.2) mg/dL Ur Leukocyte Esterase Negative (Negative) U Hyaline Cast (Auto) NONE SEEN (0-2) /LPF Urine Microscopic RBC 0-2 (0-5) /HPF Urine Microscopic WBC 0-2 (0-5) /HPF Ur Epithelial Cells Few (None Seen) /HPF Urine Bacteria Rare A (None Seen) /HPF Urine Culture Reflexed NO (NO) Urine HCG, Qual NEGATIVE (NEGATIVE) 07/23/24 07/23/24 Range/Units 20:20 20:20 WBC (3.98-10.04) x10^3/uL RBC (3.93-5.22) x10^6/uL Hgb (11.2-15.7) g/dL Hct (34.1-44.9) % MCV (79.4-94.8) fL MCH (25.6-32.2) pg MCHC (32.2-35.5) g/dL RDW (11.7-14.4) % Plt Count (182-369) x10^3/uL MPV (9.4-12.3) fL Gran % (34.0-71.1) % Immature Gran % (Auto) (0.001-0.429) % Nucleat RBC Rel Count (0.00-0.2) % Eos # (Auto) (0.04-0.36) x10^3/uL Immature Gran # (Auto) (0.001-0.031) x10^3u/L Absolute Lymphs (auto) (1.18-3.74) x10^3/uL Absolute Monos (auto) (0.24-0.86) x10^3/uL Absolute Nucleated RBC (0.00-0.012) x10^3u/L Lymphocytes % (19.3-51.7) % Monocytes % (4.7-12.5) % Eosinophils % (0.7-5.8) % Basophils % (0.1-1.2) % Absolute Granulocytes (1.56-6.13) x10^3/uL Basophils # (0.01-0.08) x10^3/uL Sodium 140 (135-145) mmol/L Potassium 3.4 L (3.5-5.1) mmol/L Chloride 109 H (98-107) mmol/L Carbon Dioxide 21 L (22-30) mmol/L Anion Gap 14.1 (5-15) MEQ/L BUN 14 (7-17) mg/dL Creatinine 0.78 (0.52-1.04) mg/dL Estimated GFR 95.4 ML/MIN Glucose 122 H (74-106) mg/dL Calcium 9.3 (8.4-10.2) mg/dL Total Bilirubin 0.20 (0.2-1.3) mg/dL AST 25 (14-36) U/L ALT 28 (0-35) U/L Alkaline Phosphatase 77 (38-126) U/L Troponin I < 0.012 (0.000-0.033) ng/mL Serum Total Protein 7.2 (6.3-8.2) g/dL Albumin 4.3 (3.5-5.0) g/dL Urine Color (Yellow) Urine Appearance (Clear) Urine pH (4.6-8.0) Ur Specific [place] (1.005-1.030) Urine Protein (Negative) Urine Glucose (UA) (Negative) mg/dL Urine Ketones (Negative) Urine Blood (Negative) Urine Nitrite (Negative) Urine Bilirubin (Negative) Urine Urobilinogen (0.2) mg/dL Ur Leukocyte Esterase (Negative) U Hyaline Cast (Auto) (0-2) /LPF Urine Microscopic RBC (0-5) /HPF Urine Microscopic WBC (0-5) /HPF Ur Epithelial Cells (None Seen) /HPF Urine Bacteria (None Seen) /HPF Urine Culture Reflexed (NO) Urine HCG, Qual (NEGATIVE) - Radiology Impressions Radiology Exams & Impressions: Radiology Procedures Category Date Time Status ECHO W/2D AND DOPPLER [US] Stat Exams 07/23/24 22:15 Ordered HEAD WITHOUT CONTRAST [CT] Stat Exams 07/23/24 20:14 Taken Assessment/Plan (1) TIA (transient ischemic attack) Current Visit: Yes Status: Acute Assessment & Plan: 1. Tele neurology consulted 2. Will admit for TIA work up per tele-neuro 3. Obtain A1c, Lipid panel, Echo with Bubble. MRI of brain can be done as an outpatient per neuro. Code(s): G45.9 - TRANSIENT CEREBRAL ISCHEMIC ATTACK, UNSPECIFIED (2) Left face and left arm tingling Current Visit: Yes Status: Acute Assessment & Plan: 1. Ddx is TIA vs anxiety 2. TIA workup as noted above Code(s): R20.2 - PARESTHESIA OF SKIN Telemedicine Encounter - Telemedicine Encounter Telemedicine Encounter: "The entirety of this encounter was performed via Telemedicine" This visit was performed using real-time audio and video connection between my location and thepatients locationwith the assistance of a surrogateat the patients location. Written or verbal consent was obtained from the pat ient/guardian to perform this visit [email or web address] technology. Any patient questions regarding the telemedicine interaction were answered.
[2024-07-23] MEDS ORDERED: NITRO-BID 2% UD PACKETS ONE (22:27)
[2024-07-23] MEDS: LIPITOR 40MG PO STA (22:29)
[2024-07-23] MEDS: NITRO-BID 2% UD PACKETS TOP ONE (22:30)
[2024-07-23] MEDS: Sodium Chloride 0.9% 1000 ML 1,000 ML IV SCH (22:38)
[2024-07-23] MEDS ORDERED: BENADRYL 50 MG/ML ONE (22:48)
[2024-07-23] MEDS: BENADRYL 50 MG/ML IV ONE (22:48)
[2024-07-23] MEDS ORDERED: NON-FORMULARY ITEM (Cholecalciferol (Vitamin D3) [Vitamin D3] 1,250 MCG Capsule) PO SCH (23:45)
[2024-07-23] MEDS ORDERED: NON-FORMULARY ITEM (Exenatide Microspheres [Bydureon Bcise] 2 MG/0.85 ML Auto.Injct) SQ SCH (23:45)
[2024-07-23] MEDS ORDERED: NON-FORMULARY ITEM (Hydroxyzine Hcl [Hydroxyzine Hcl] 50 MG Tablet) PO PRN (23:52)
[2024-07-24] MEDS: ULTRAM 50 MG PO PRN ×2 (00:06→07:48)
[2024-07-24] MEDS: TYLENOL 325 MG PO ONE (03:32)
[2024-07-24 03:35] VITALS: RESP 16
[2024-07-24 06:14] LABS: Absolute Neutrophil Ct (ANC) 3.17 x10^3/uL (1.56-6.13); BASOPHIL % 0.7 % (0.1-1.2); Basophil (Absolute #) 0.05 x10^3/uL (0.01-0.08); Eosinophil % 2.2 % (0.7-5.8); Eosinophil (Absolute #) 0.17 x10^3/uL (0.04-0.36); Hematocrit 36.3 % (34.1-44.9); Hemoglobin 11.8 g/dL (11.2-15.7); IMMATURE GRAN # 0.03 x10^3u/L (0.001-0.031); IMMATURE GRAN % 0.4 % (0.001-0.429); Lymphocyte (Absolute #) 3.62 x10^3/uL (1.18-3.74); Lymphocytes % 47.6 % (19.3-51.7); Mean Cell Volume 87.7 fL (79.4-94.8); Mean Corpuscular Hemoglobin 28.5 pg (25.6-32.2); Mean Corpuscular Hgb Concent. 32.5 g/dL (32.2-35.5); Mean Platelet Volume 9.6 fL (9.4-12.3); Monocyte (Absolute #) 0.56 x10^3/uL (0.24-0.86); Monocytes % 7.4 % (4.7-12.5); Neutrophil % 41.7 % (34.0-71.1); Platelet Count 249 x10^3/uL (182-369); Red Blood Count 4.14 x10^6/uL (3.93-5.22); Red Cell Distribution Width 12.5 % (11.7-14.4); White Blood Count 7.6 x10^3/uL (3.98-10.04)
--- NOTE | 2024-07-24 06:22 | PCM.NOTE ---
Date and Time: 07/24/24614 Subjective Assessment: Ms. Jaime is a 44 year old female with a pmhx of HTN, GERD, and anxiety/depression who presented to ED 07/23/24 with complaints of left facial/arm numbness and tingling. Patient also noted chest discomfort. Symptoms persistent. No associated N/V. Upon arrival to ED vitals stable. EKG per ED read RATE (73), Sinus Rhythm, NORMAL AXIS, NORMAL INTERVALS, NORMAL QRS. CT head with no acute intracranial pathology. Initial lab findings with hypokalemia at 3.4 and co2 at 21. CBC and UA negative. Troponin I series negative x 3. Lipid panel with elevated trig, choles, and LDL -Simvastatin started. Neurology consulted and advised admission for stroke rule out with Echo (bubble study not available at this facility)/MRI Brain w/o co - start 81mg ASA. Potassium replenished in ED. MRI/Echo pending. Symptoms have resolved. Patient does report residual h/a and eye pain. No further cp or tingling. Hypokalemia resolved. Repeat EKG with no acute findings. Pending MRI results may be able to discharge home today. Neurology OP has been set up. - Review of Systems Constitutional: No Symptoms Eyes: Eye Pain Ears, Nose, & Throat: No Symptoms Respiratory: No Symptoms Cardiac: No Symptoms Abdominal/Gastrointestinal: No Symptoms Genitourinary Symptoms: No Symptoms Musculoskeletal: No Symptoms Skin: No Symptoms Neurological: Headache Psychological: No Symptoms Endocrine: No Symptoms Hematologic/Lymphatic: No Symptoms Immunological/Allergic: No Symptoms Objective Exam General Appearance: no apparent distress Neurologic Exam: alert, 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, cooperative Skin Exam: normal color Eye Exam: PERRL Ears, Nose, Throat Exam: normal ENT inspection Neck Exam: normal inspection Respiratory Exam: normal breath sounds, lungs clear Cardiovascular Exam: regular rate/rhythm, normal heart sounds Gastrointestinal/Abdomen Exam: soft, normal bowel sounds Extremity Exam: normal inspection Back Exam: normal inspection Pelvic Exam: deferred Rectal Exam: deferred Objective Data Vital Signs: Vital Signs - 24 hr Temp Pulse Resp BP BP Pulse Ox 07/24/24 03:34 97.1 F 67 16 101/58 97 07/23/24 23:12 97.5 F 65 20 116/76 98 07/23/24 22:11 99 07/23/24 22:00 70 19 123/76 99 07/23/24 21:30 66 17 112/64 97 07/23/24 21:14 64 19 98/65 98 07/23/24 20:59 68 18 107/72 96 07/23/24 20:30 74 15 115/73 97 07/23/24 20:14 97.9 F 76 18 123/72 99 Pain Assessment - Last Documented Pain Intensity 6 Pain Scale Used 0-10 Pain Scale Intake and Output: Intake & Output 07/21/24 07/22/24 07/23/24 07/24/24 11:59 11:59 11:59 11:59 Intake Total 502 Balance 502 Weight 120.7 kg Lab Results: Lab Results-Last 24 Hours 07/23/24 07/23/24 07/23/24 Range/Units 20:13 20:13 20:20 WBC 7.9 (3.98-10.04) x10^3/uL RBC 4.41 (3.93-5.22) x10^6/uL Hgb 12.8 (11.2-15.7) g/dL Hct 38.4 (34.1-44.9) % MCV 87.1 (79.4-94.8) fL MCH 29.0 (25.6-32.2) pg MCHC 33.3 (32.2-35.5) g/dL RDW 12.3 (11.7-14.4) % Plt Count 273 (182-369) x10^3/uL MPV 9.0 L (9.4-12.3) fL Gran % 50.8 (34.0-71.1) % Immature Gran % (Auto) 0.4 (0.001-0.429) % Nucleat RBC Rel Count 0.0 (0.00-0.2) % Eos # (Auto) 0.11 (0.04-0.36) x10^3/uL Immature Gran # (Auto) 0.03 (0.001-0.031) x10^3u/L Absolute Lymphs (auto) 3.17 (1.18-3.74) x10^3/uL Absolute Monos (auto) 0.54 (0.24-0.86) x10^3/uL Absolute Nucleated RBC 0.00 (0.00-0.012) x10^3u/L Lymphocytes % 40.1 (19.3-51.7) % Monocytes % 6.8 (4.7-12.5) % Eosinophils % 1.4 (0.7-5.8) % Basophils % 0.5 (0.1-1.2) % Absolute Granulocytes 4.01 (1.56-6.13) x10^3/uL Basophils # 0.04 (0.01-0.08) x10^3/uL Sodium (135-145) mmol/L Potassium (3.5-5.1) mmol/L Chloride (98-107) mmol/L Carbon Dioxide (22-30) mmol/L Anion Gap (5-15) MEQ/L BUN (7-17) mg/dL Creatinine (0.52-1.04) mg/dL Estimated GFR ML/MIN Glucose (74-106) mg/dL Hemoglobin A1c (4.5-6.0) % Calcium (8.4-10.2) mg/dL Total Bilirubin (0.2-1.3) mg/dL AST (14-36) U/L ALT (0-35) U/L Alkaline Phosphatase (38-126) U/L Troponin I (0.000-0.033) ng/mL Serum Total Protein (6.3-8.2) g/dL Albumin (3.5-5.0) g/dL Triglycerides (30-150) mg/dL Cholesterol (50-200) mg/dL LDL Cholesterol (30-100) mg/dL HDL Cholesterol (40-60) mg/dL Heart Disease Risk Ratio Urine Color Yellow (Yellow) Urine Appearance Clear (Clear) Urine pH 6.5 (4.6-8.0) Ur Specific [place] 1.025 (1.005-1.030) Urine Protein Negative (Negative) Urine Glucose (UA) Negative (Negative) mg/dL Urine Ketones Negative (Negative) Urine Blood Negative (Negative) Urine Nitrite Negative (Negative) Urine Bilirubin Negative (Negative) Urine Urobilinogen 0.2 (0.2) mg/dL Ur Leukocyte Esterase Negative (Negative) U Hyaline Cast (Auto) NONE SEEN (0-2) /LPF Urine Microscopic RBC 0-2 (0-5) /HPF Urine Microscopic WBC 0-2 (0-5) /HPF Ur Epithelial Cells Few (None Seen) /HPF Urine Bacteria Rare A (None Seen) /HPF Urine Culture Reflexed NO (NO) Urine HCG, Qual NEGATIVE (NEGATIVE) 07/23/24 07/23/24 07/23/24 Range/Units 20:20 20:20 20:20 WBC (3.98-10.04) x10^3/uL RBC (3.93-5.22) x10^6/uL Hgb (11.2-15.7) g/dL Hct (34.1-44.9) % MCV (79.4-94.8) fL MCH (25.6-32.2) pg MCHC (32.2-35.5) g/dL RDW (11.7-14.4) % Plt Count (182-369) x10^3/uL MPV (9.4-12.3) fL Gran % (34.0-71.1) % Immature Gran % (Auto) (0.001-0.429) % Nucleat RBC Rel Count (0.00-0.2) % Eos # (Auto) (0.04-0.36) x10^3/uL Immature Gran # (Auto) (0.001-0.031) x10^3u/L Absolute Lymphs (auto) (1.18-3.74) x10^3/uL Absolute Monos (auto) (0.24-0.86) x10^3/uL Absolute Nucleated RBC (0.00-0.012) x10^3u/L Lymphocytes % (19.3-51.7) % Monocytes % (4.7-12.5) % Eosinophils % (0.7-5.8) % Basophils % (0.1-1.2) % Absolute Granulocytes (1.56-6.13) x10^3/uL Basophils # (0.01-0.08) x10^3/uL Sodium 140 (135-145) mmol/L Potassium 3.4 L (3.5-5.1) mmol/L Chloride 109 H (98-107) mmol/L Carbon Dioxide 21 L (22-30) mmol/L Anion Gap 14.1 (5-15) MEQ/L BUN 14 (7-17) mg/dL Creatinine 0.78 (0.52-1.04) mg/dL Estimated GFR 95.4 ML/MIN Glucose 122 H (74-106) mg/dL Hemoglobin A1c 5.23 (4.5-6.0) % Calcium 9.3 (8.4-10.2) mg/dL Total Bilirubin 0.20 (0.2-1.3) mg/dL AST 25 (14-36) U/L ALT 28 (0-35) U/L Alkaline Phosphatase 77 (38-126) U/L Troponin I < 0.012 (0.000-0.033) ng/mL Serum Total Protein 7.2 (6.3-8.2) g/dL Albumin 4.3 (3.5-5.0) g/dL Triglycerides (30-150) mg/dL Cholesterol (50-200) mg/dL LDL Cholesterol (30-100) mg/dL HDL Cholesterol (40-60) mg/dL Heart Disease Risk Ratio Urine Color (Yellow) Urine Appearance (Clear) Urine pH (4.6-8.0) Ur Specific [place] (1.005-1.030) Urine Protein (Negative) Urine Glucose (UA) (Negative) mg/dL Urine Ketones (Negative) Urine Blood (Negative) Urine Nitrite (Negative) Urine Bilirubin (Negative) Urine Urobilinogen (0.2) mg/dL Ur Leukocyte Esterase (Negative) U Hyaline Cast (Auto) (0-2) /LPF Urine Microscopic RBC (0-5) /HPF Urine Microscopic WBC (0-5) /HPF Ur Epithelial Cells (None Seen) /HPF Urine Bacteria (None Seen) /HPF Urine Culture Reflexed (NO) Urine HCG, Qual (NEGATIVE) 07/24/24 07/24/24 07/24/24 Range/Units 00:10 05:04 05:04 WBC (3.98-10.04) x10^3/uL RBC (3.93-5.22) x10^6/uL Hgb (11.2-15.7) g/dL Hct (34.1-44.9) % MCV (79.4-94.8) fL MCH (25.6-32.2) pg MCHC (32.2-35.5) g/dL RDW (11.7-14.4) % Plt Count (182-369) x10^3/uL MPV (9.4-12.3) fL Gran % (34.0-71.1) % Immature Gran % (Auto) (0.001-0.429) % Nucleat RBC Rel Count (0.00-0.2) % Eos # (Auto) (0.04-0.36) x10^3/uL Immature Gran # (Auto) (0.001-0.031) x10^3u/L Absolute Lymphs (auto) (1.18-3.74) x10^3/uL Absolute Monos (auto) (0.24-0.86) x10^3/uL Absolute Nucleated RBC (0.00-0.012) x10^3u/L Lymphocytes % (19.3-51.7) % Monocytes % (4.7-12.5) % Eosinophils % (0.7-5.8) % Basophils % (0.1-1.2) % Absolute Granulocytes (1.56-6.13) x10^3/uL Basophils # (0.01-0.08) x10^3/uL Sodium (135-145) mmol/L Potassium (3.5-5.1) mmol/L Chloride (98-107) mmol/L Carbon Dioxide (22-30) mmol/L Anion Gap (5-15) MEQ/L BUN (7-17) mg/dL Creatinine (0.52-1.04) mg/dL Estimated GFR ML/MIN Glucose (74-106) mg/dL Hemoglobin A1c (4.5-6.0) % Calcium (8.4-10.2) mg/dL Total Bilirubin (0.2-1.3) mg/dL AST (14-36) U/L ALT (0-35) U/L Alkaline Phosphatase (38-126) U/L Troponin I < 0.012 < 0.012 (0.000-0.033) ng/mL Serum Total Protein (6.3-8.2) g/dL Albumin (3.5-5.0) g/dL Triglycerides 377 H (30-150) mg/dL Cholesterol 224 H (50-200) mg/dL LDL Cholesterol 121 H (30-100) mg/dL HDL Cholesterol 33 L (40-60) mg/dL Heart Disease Risk Ratio 7.0 Urine Color (Yellow) Urine Appearance (Clear) Urine pH (4.6-8.0) Ur Specific [place] (1.005-1.030) Urine Protein (Negative) Urine Glucose (UA) (Negative) mg/dL Urine Ketones (Negative) Urine Blood (Negative) Urine Nitrite (Negative) Urine Bilirubin (Negative) Urine Urobilinogen (0.2) mg/dL Ur Leukocyte Esterase (Negative) U Hyaline Cast (Auto) (0-2) /LPF Urine Microscopic RBC (0-5) /HPF Urine Microscopic WBC (0-5) /HPF Ur Epithelial Cells (None Seen) /HPF Urine Bacteria (None Seen) /HPF Urine Culture Reflexed (NO) Urine HCG, Qual (NEGATIVE) Radiology Exams: Radiology Procedures Category Date Time Status ECHO W/2D AND DOPPLER [US] Stat Exams 07/23/24 22:50 Ordered HEAD WITHOUT CONTRAST [CT] Stat Exams 07/23/24 20:14 Taken Assessment/Plan (1) Left face and left arm tingling Current Visit: Yes Status: Acute Assessment & Plan: -Echo ordered and pending -MRI brain w/o contrast -Lipid reviewed - Atorvastatin added -A1c at 5.23 Code(s): R20.2 - PARESTHESIA OF SKIN (2) Hypokalemia Current Visit: Yes Status: Acute Assessment & Plan: -CMP reviewed from admission with potassium at 3.4 - Treated in ED - replenishment per potassium protocol Code(s): E87.6 - HYPOKALEMIA (3) Chest pain Current Visit: Yes Status: Acute Assessment & Plan: -EKG and troponin I series unremarkable -Repeat EKG - unremarkable -Echo ordered and pending -lipid panel reviewed as stated -CXR Code(s): R07.9 - CHEST PAIN, UNSPECIFIED (4) HTN (hypertension) Current Visit: Yes Status: Acute Assessment & Plan: -with some hypotension overnight - hold BP meds - monitor closely Code(s): I10 - ESSENTIAL (PRIMARY) HYPERTENSION (5) GERD (gastroesophageal reflux disease) Current Visit: Yes Status: Acute Assessment & Plan: -does not appear to be on home med - Code(s): K21.9 - GASTRO-ESOPHAGEAL REFLUX DISEASE WITHOUT ESOPHAGITIS (6) Anxiety and depression Current Visit: Yes Status: Acute Assessment & Plan: -continue zoloft Code(s): F41.9 - ANXIETY DISORDER, UNSPECIFIED; F32.A - DEPRESSION, UNSPECIFIED
[2024-07-24] MEDS ORDERED: ATARAX 25 MG PO PRN (06:42)
[2024-07-24] MEDS ORDERED: MEDICATION INTERVENTION MC SCH (06:45)
[2024-07-24 07:21] VITALS: TEMP 96.9
[2024-07-24 07:23] LABS: ALBUMIN 3.8 g/dL (3.5-5.0); BILIRUBIN,TOTAL 0.2 mg/dL (0.2-1.3); Calcium 8.8 mg/dL (8.4-10.2); Creatinine 1 0.78 mg/dL (0.52-1.04); EST GLOMERULAR FILTRATION RATE 95.4 ML/MIN; MAGNESIUM 1.7 mg/dL (1.6-2.3); Potassium 3.6 mmol/L (3.5-5.1); Total Protein 6.6 g/dL (6.3-8.2)
--- NOTE | 2024-07-24 08:39 | XRAY ---
Indication: Facial paresthesia. Multiple contiguous axial images obtained through the head without contrast. Comparison: None Normal appearing brain parenchyma, ventricles, and bony calvarium. Tiny fluid leveling left maxillary sinus. Remaining visualized paranasal sinuses and mastoid air cells are clear. Impression: Normal CT head without contrast exam. Incidental left maxillary sinus disease.
[2024-07-24] MEDS: Zestril 20 MG*** 20 MG, hydroDIURIL 25 MG*** 12.5 MG PO SCH (09:08)
[2024-07-24] MEDS: ECOTRIN 81 MG PO SCH (09:08)
[2024-07-24] MEDS: ZOLOFT 50 MG TABLET PO SCH (09:08)
[2024-07-24] MEDS ORDERED: BABY ASPIRIN 81 MG CHEW PO SCH (10:00)
[2024-07-24] MEDS ORDERED: NON-FORMULARY ITEM (Lisinopril/Hydrochlorothiazide [Lisinopril-Hctz 20-12.5 Mg Tab] 1 EACH PO SCH (10:00)
--- NOTE | 2024-07-24 11:15 | PCM.DS ---
Discharge Summary Date of Admission: 07/23/24 22:44 Date of Discharge: 07/24/24 Admitting Physician: LUCIUS MCCLENDON MD Primary Care Provider: TORRES MUÑOZ Allergies Allergies Penicillins Allergy (Severe, Verified 07/23/24 20:12) Anaphylactic Reaction Hospital Summary - Hospital Course Hospital Course: Ms. Jaime is a 44 year old female with a pmhx of HTN, GERD, and anxiety/depression who presented to ED 07/23/24 with complaints of left facial/arm numbness and tingling. Patient also noted chest discomfort. Symptoms persistent. No associated N/V. Upon arrival to ED vitals stable. EKG per ED read RATE (73), Sinus Rhythm, NORMAL AXIS, NORMAL INTERVALS, NORMAL QRS. CT head with no acute intracranial pathology. Initial lab findings with hypokalemia at 3.4 and co2 at 21. CBC and UA negative. Troponin I series negative x 3. Lipid panel with elevated trig, choles, and LDL -Simvastatin started. Neurology consulted and advised admission for stroke rule out with Echo (bubble study not available at this facility)/MRI Brain w/o co - start 81mg ASA. Potassium replenished in ED. MRI/Echo pending. Symptoms have resolved. Patient does report residual h/a and eye pain. No further cp or tingling. Hypokalemia resolved. Repeat EKG with no acute findings. Pending MRI results may be able to discharge home today. Neurology OP has been set up. (1) Left face and left arm tingling Current Visit: Yes Status: Acute Assessment & Plan: -Echo ordered and pending -MRI brain w/o contrast -Lipid reviewed - Atorvastatin added -A1c at 5.23 07/24: -resolved Code(s): R20.2 - PARESTHESIA OF SKIN (2) Hypokalemia Current Visit: Yes Status: Acute Assessment & Plan: -CMP reviewed from admission with potassium at 3.4 - Treated in ED - replenishment per potassium protocol 07/24: -Resolved Code(s): E87.6 - HYPOKALEMIA (3) Chest pain Current Visit: Yes Status: Acute Assessment & Plan: -EKG and troponin I series unremarkable -Repeat EKG - unremarkable -Echo ordered and pending -lipid panel reviewed as stated 07/24: -resolved Code(s): R07.9 - CHEST PAIN, UNSPECIFIED (4) HTN (hypertension) Current Visit: Yes Status: Acute Assessment & Plan: -with some hypotension overnight - hold BP meds - monitor closely Code(s): I10 - ESSENTIAL (PRIMARY) HYPERTENSION (5) GERD (gastroesophageal reflux disease) Current Visit: Yes Status: Acute Assessment & Plan: -does not appear to be on home med - Code(s): K21.9 - GASTRO-ESOPHAGEAL REFLUX DISEASE WITHOUT ESOPHAGITIS (6) Anxiety and depression Current Visit: Yes Status: Acute Assessment & Plan: -continue zoloft Code(s): F41.9 - ANXIETY DISORDER, UNSPECIFIED; F32.A - DEPRESSION, UNSPECIFIED - Vitals & Intake/Output Vital Signs: Vital Signs Temperature 96.9 F 07/24/24 07:21 Pulse Rate 62 07/24/24 07:21 Respiratory Rate 16 07/24/24 07:21 Blood Pressure 105/54 07/24/24 07:21 O2 Sat by Pulse Oximetry 98 07/24/24 07:21 Intake & Output: Intake & Output 07/21/24 07/22/24 07/23/24 07/24/24 11:59 11:59 11:59 11:59 Intake Total 742 Balance 742 Weight 120.7 kg - Lab Result Diagrams: 07/24/24 05:04 07/24/24 05:04 Lab Results-Last 24 Hrs: Lab Results-Last 24 Hours 07/23/24 07/23/24 07/23/24 Range/Units 20:13 20:13 20:20 WBC 7.9 (3.98-10.04) x10^3/uL RBC 4.41 (3.93-5.22) x10^6/uL Hgb 12.8 (11.2-15.7) g/dL Hct 38.4 (34.1-44.9) % MCV 87.1 (79.4-94.8) fL MCH 29.0 (25.6-32.2) pg MCHC 33.3 (32.2-35.5) g/dL RDW 12.3 (11.7-14.4) % Plt Count 273 (182-369) x10^3/uL MPV 9.0 L (9.4-12.3) fL Gran % 50.8 (34.0-71.1) % Immature Gran % (Auto) 0.4 (0.001-0.429) % Nucleat RBC Rel Count 0.0 (0.00-0.2) % Eos # (Auto) 0.11 (0.04-0.36) x10^3/uL Immature Gran # (Auto) 0.03 (0.001-0.031) x10^3u/L Absolute Lymphs (auto) 3.17 (1.18-3.74) x10^3/uL Absolute Monos (auto) 0.54 (0.24-0.86) x10^3/uL Absolute Nucleated RBC 0.00 (0.00-0.012) x10^3u/L Lymphocytes % 40.1 (19.3-51.7) % Monocytes % 6.8 (4.7-12.5) % Eosinophils % 1.4 (0.7-5.8) % Basophils % 0.5 (0.1-1.2) % Absolute Granulocytes 4.01 (1.56-6.13) x10^3/uL Basophils # 0.04 (0.01-0.08) x10^3/uL Sodium (135-145) mmol/L Potassium (3.5-5.1) mmol/L Chloride (98-107) mmol/L Carbon Dioxide (22-30) mmol/L Anion Gap (5-15) MEQ/L BUN (7-17) mg/dL Creatinine (0.52-1.04) mg/dL Estimated GFR ML/MIN Glucose (74-106) mg/dL Hemoglobin A1c (4.5-6.0) % Calcium (8.4-10.2) mg/dL Magnesium (1.6-2.3) mg/dL Total Bilirubin (0.2-1.3) mg/dL AST (14-36) U/L ALT (0-35) U/L Alkaline Phosphatase (38-126) U/L Troponin I (0.000-0.033) ng/mL Serum Total Protein (6.3-8.2) g/dL Albumin (3.5-5.0) g/dL Triglycerides (30-150) mg/dL Cholesterol (50-200) mg/dL LDL Cholesterol (30-100) mg/dL HDL Cholesterol (40-60) mg/dL Heart Disease Risk Ratio Vitamin B12 (239-931) pg/mL Urine Color Yellow (Yellow) Urine Appearance Clear (Clear) Urine pH 6.5 (4.6-8.0) Ur Specific [place] 1.025 (1.005-1.030) Urine Protein Negative (Negative) Urine Glucose (UA) Negative (Negative) mg/dL Urine Ketones Negative (Negative) Urine Blood Negative (Negative) Urine Nitrite Negative (Negative) Urine Bilirubin Negative (Negative) Urine Urobilinogen 0.2 (0.2) mg/dL Ur Leukocyte Esterase Negative (Negative) U Hyaline Cast (Auto) NONE SEEN (0-2) /LPF Urine Microscopic RBC 0-2 (0-5) /HPF Urine Microscopic WBC 0-2 (0-5) /HPF Ur Epithelial Cells Few (None Seen) /HPF Urine Bacteria Rare A (None Seen) /HPF Urine Culture Reflexed NO (NO) Urine HCG, Qual NEGATIVE (NEGATIVE) 07/23/24 07/23/24 07/23/24 Range/Units 20:20 20:20 20:20 WBC (3.98-10.04) x10^3/uL RBC (3.93-5.22) x10^6/uL Hgb (11.2-15.7) g/dL Hct (34.1-44.9) % MCV (79.4-94.8) fL MCH (25.6-32.2) pg MCHC (32.2-35.5) g/dL RDW (11.7-14.4) % Plt Count (182-369) x10^3/uL MPV (9.4-12.3) fL Gran % (34.0-71.1) % Immature Gran % (Auto) (0.001-0.429) % Nucleat RBC Rel Count (0.00-0.2) % Eos # (Auto) (0.04-0.36) x10^3/uL Immature Gran # (Auto) (0.001-0.031) x10^3u/L Absolute Lymphs (auto) (1.18-3.74) x10^3/uL Absolute Monos (auto) (0.24-0.86) x10^3/uL Absolute Nucleated RBC (0.00-0.012) x10^3u/L Lymphocytes % (19.3-51.7) % Monocytes % (4.7-12.5) % Eosinophils % (0.7-5.8) % Basophils % (0.1-1.2) % Absolute Granulocytes (1.56-6.13) x10^3/uL Basophils # (0.01-0.08) x10^3/uL Sodium 140 (135-145) mmol/L Potassium 3.4 L (3.5-5.1) mmol/L Chloride 109 H (98-107) mmol/L Carbon Dioxide 21 L (22-30) mmol/L Anion Gap 14.1 (5-15) MEQ/L BUN 14 (7-17) mg/dL Creatinine 0.78 (0.52-1.04) mg/dL Estimated GFR 95.4 ML/MIN Glucose 122 H (74-106) mg/dL Hemoglobin A1c 5.23 (4.5-6.0) % Calcium 9.3 (8.4-10.2) mg/dL Magnesium (1.6-2.3) mg/dL Total Bilirubin 0.20 (0.2-1.3) mg/dL AST 25 (14-36) U/L ALT 28 (0-35) U/L Alkaline Phosphatase 77 (38-126) U/L Troponin I < 0.012 (0.000-0.033) ng/mL Serum Total Protein 7.2 (6.3-8.2) g/dL Albumin 4.3 (3.5-5.0) g/dL Triglycerides (30-150) mg/dL Cholesterol (50-200) mg/dL LDL Cholesterol (30-100) mg/dL HDL Cholesterol (40-60) mg/dL Heart Disease Risk Ratio Vitamin B12 (239-931) pg/mL Urine Color (Yellow) Urine Appearance (Clear) Urine pH (4.6-8.0) Ur Specific [place] (1.005-1.030) Urine Protein (Negative) Urine Glucose (UA) (Negative) mg/dL Urine Ketones (Negative) Urine Blood (Negative) Urine Nitrite (Negative) Urine Bilirubin (Negative) Urine Urobilinogen (0.2) mg/dL Ur Leukocyte Esterase (Negative) U Hyaline Cast (Auto) (0-2) /LPF Urine Microscopic RBC (0-5) /HPF Urine Microscopic WBC (0-5) /HPF Ur Epithelial Cells (None Seen) /HPF Urine Bacteria (None Seen) /HPF Urine Culture Reflexed (NO) Urine HCG, Qual (NEGATIVE) 07/24/24 07/24/24 07/24/24 Range/Units 00:10 05:04 05:04 WBC (3.98-10.04) x10^3/uL RBC (3.93-5.22) x10^6/uL Hgb (11.2-15.7) g/dL Hct (34.1-44.9) % MCV (79.4-94.8) fL MCH (25.6-32.2) pg MCHC (32.2-35.5) g/dL RDW (11.7-14.4) % Plt Count (182-369) x10^3/uL MPV (9.4-12.3) fL Gran % (34.0-71.1) % Immature Gran % (Auto) (0.001-0.429) % Nucleat RBC Rel Count (0.00-0.2) % Eos # (Auto) (0.04-0.36) x10^3/uL Immature Gran # (Auto) (0.001-0.031) x10^3u/L Absolute Lymphs (auto) (1.18-3.74) x10^3/uL Absolute Monos (auto) (0.24-0.86) x10^3/uL Absolute Nucleated RBC (0.00-0.012) x10^3u/L Lymphocytes % (19.3-51.7) % Monocytes % (4.7-12.5) % Eosinophils % (0.7-5.8) % Basophils % (0.1-1.2) % Absolute Granulocytes (1.56-6.13) x10^3/uL Basophils # (0.01-0.08) x10^3/uL Sodium (135-145) mmol/L Potassium (3.5-5.1) mmol/L Chloride (98-107) mmol/L Carbon Dioxide (22-30) mmol/L Anion Gap (5-15) MEQ/L BUN (7-17) mg/dL Creatinine (0.52-1.04) mg/dL Estimated GFR ML/MIN Glucose (74-106) mg/dL Hemoglobin A1c (4.5-6.0) % Calcium (8.4-10.2) mg/dL Magnesium (1.6-2.3) mg/dL Total Bilirubin (0.2-1.3) mg/dL AST (14-36) U/L ALT (0-35) U/L Alkaline Phosphatase (38-126) U/L Troponin I < 0.012 < 0.012 (0.000-0.033) ng/mL Serum Total Protein (6.3-8.2) g/dL Albumin (3.5-5.0) g/dL Triglycerides 377 H (30-150) mg/dL Cholesterol 224 H (50-200) mg/dL LDL Cholesterol 121 H (30-100) mg/dL HDL Cholesterol 33 L (40-60) mg/dL Heart Disease Risk Ratio 7.0 Vitamin B12 (239-931) pg/mL Urine Color (Yellow) Urine Appearance (Clear) Urine pH (4.6-8.0) Ur Specific [place] (1.005-1.030) Urine Protein (Negative) Urine Glucose (UA) (Negative) mg/dL Urine Ketones (Negative) Urine Blood (Negative) Urine Nitrite (Negative) Urine Bilirubin (Negative) Urine Urobilinogen (0.2) mg/dL Ur Leukocyte Esterase (Negative) U Hyaline Cast (Auto) (0-2) /LPF Urine Microscopic RBC (0-5) /HPF Urine Microscopic WBC (0-5) /HPF Ur Epithelial Cells (None Seen) /HPF Urine Bacteria (None Seen) /HPF Urine Culture Reflexed (NO) Urine HCG, Qual (NEGATIVE) 07/24/24 07/24/24 Range/Units 05:04 05:04 WBC 7.6 (3.98-10.04) x10^3/uL RBC 4.14 (3.93-5.22) x10^6/uL Hgb 11.8 (11.2-15.7) g/dL Hct 36.3 (34.1-44.9) % MCV 87.7 (79.4-94.8) fL MCH 28.5 (25.6-32.2) pg MCHC 32.5 (32.2-35.5) g/dL RDW 12.5 (11.7-14.4) % Plt Count 249 (182-369) x10^3/uL MPV 9.6 (9.4-12.3) fL Gran % 41.7 (34.0-71.1) % Immature Gran % (Auto) 0.4 (0.001-0.429) % Nucleat RBC Rel Count 0.0 (0.00-0.2) % Eos # (Auto) 0.17 (0.04-0.36) x10^3/uL Immature Gran # (Auto) 0.03 (0.001-0.031) x10^3u/L Absolute Lymphs (auto) 3.62 (1.18-3.74) x10^3/uL Absolute Monos (auto) 0.56 (0.24-0.86) x10^3/uL Absolute Nucleated RBC 0.00 (0.00-0.012) x10^3u/L Lymphocytes % 47.6 (19.3-51.7) % Monocytes % 7.4 (4.7-12.5) % Eosinophils % 2.2 (0.7-5.8) % Basophils % 0.7 (0.1-1.2) % Absolute Granulocytes 3.17 (1.56-6.13) x10^3/uL Basophils # 0.05 (0.01-0.08) x10^3/uL Sodium 141 (135-145) mmol/L Potassium 3.6 (3.5-5.1) mmol/L Chloride 111 H (98-107) mmol/L Carbon Dioxide 20 L (22-30) mmol/L Anion Gap 13.0 (5-15) MEQ/L BUN 12 (7-17) mg/dL Creatinine 0.78 (0.52-1.04) mg/dL Estimated GFR 95.4 ML/MIN Glucose 95 (74-106) mg/dL Hemoglobin A1c (4.5-6.0) % Calcium 8.8 (8.4-10.2) mg/dL Magnesium 1.7 (1.6-2.3) mg/dL Total Bilirubin 0.20 (0.2-1.3) mg/dL AST 24 (14-36) U/L ALT 27 (0-35) U/L Alkaline Phosphatase 75 (38-126) U/L Troponin I (0.000-0.033) ng/mL Serum Total Protein 6.6 (6.3-8.2) g/dL Albumin 3.8 (3.5-5.0) g/dL Triglycerides (30-150) mg/dL Cholesterol (50-200) mg/dL LDL Cholesterol (30-100) mg/dL HDL Cholesterol (40-60) mg/dL Heart Disease Risk Ratio Vitamin B12 286 (239-931) pg/mL Urine Color (Yellow) Urine Appearance (Clear) Urine pH (4.6-8.0) Ur Specific [place] (1.005-1.030) Urine Protein (Negative) Urine Glucose (UA) (Negative) mg/dL Urine Ketones (Negative) Urine Blood (Negative) Urine Nitrite (Negative) Urine Bilirubin (Negative) Urine Urobilinogen (0.2) mg/dL Ur Leukocyte Esterase (Negative) U Hyaline Cast (Auto) (0-2) /LPF Urine Microscopic RBC (0-5) /HPF Urine Microscopic WBC (0-5) /HPF Ur Epithelial Cells (None Seen) /HPF Urine Bacteria (None Seen) /HPF Urine Culture Reflexed (NO) Urine HCG, Qual (NEGATIVE) - Radiology Exams Ordered Rad Exams-Entire Visit: Radiology Procedures Category Date Time Status ECHO W/2D AND DOPPLER [US] Stat Exams 07/24/24 22:50 Ordered HEAD WITHOUT CONTRAST [CT] Stat Exams 07/23/24 20:14 Completed MRI BRAIN W/O CONTRAST [MRI] Routine Exams 07/24/24 07:45 Ordered - Procedures and Test Procedures and Tests throughout Hospitalization: Therapy Orders & Screens 07/24/24 07:11 EKG ROUTINE Comment: Diagnosis: Chest pain, ACS Discharge Exam General Appearance: no apparent distress Neurologic Exam: alert, 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, cooperative Eye Exam: PERRL Ears, Nose, Throat Exam: normal ENT inspection Neck Exam: normal inspection Respiratory Exam: normal breath sounds, lungs clear Cardiovascular Exam: regular rate/rhythm, normal heart sounds Gastrointestinal/Abdomen Exam: soft, normal bowel sounds Pelvic Exam: deferred Rectal Exam: deferred Back Exam: normal inspection Extremity Exam: normal inspection Skin Exam: normal color Final Diagnosis/Problem List - Final Discharge Diagnosis/Problem (1) Left face and left arm tingling Current Visit: Yes Status: Resolved Code(s): R20.2 - PARESTHESIA OF SKIN (2) Hypokalemia Current Visit: Yes Status: Resolved Code(s): E87.6 - HYPOKALEMIA (3) Chest pain Current Visit: Yes Status: Resolved Code(s): R07.9 - CHEST PAIN, UNSPECIFIED (4) HTN (hypertension) Current Visit: Yes Status: Chronic Code(s): I10 - ESSENTIAL (PRIMARY) HYPERTENSION (5) GERD (gastroesophageal reflux disease) Current Visit: Yes Status: Chronic Code(s): K21.9 - GASTRO-ESOPHAGEAL REFLUX DISEASE WITHOUT ESOPHAGITIS (6) Anxiety and depression Current Visit: Yes Status: Chronic Code(s): F41.9 - ANXIETY DISORDER, UNSPECIFIED; F32.A - DEPRESSION, UNSPECIFIED - Discharge Discharge Date: 07/24/24 Disposition: Home, Self-Care Condition: Stable Prescriptions: New Aspirin EC 81 mg [Ecotrin 81 mg] 81 mg PO QAM 30 Days #30 tablet Simvastatin 40 mg PO DAILY 30 Days #30 tablet Continue Sertraline HCl 50 mg [Zoloft 50 mg Tablet] 1 ea PO DAILY Lisinopril/Hydrochlorothiazide [Lisinopril-Hctz 20-12.5 mg Tab] 1 each PO DAILY Tramadol HCl 50 mg [Ultram 50 mg] 50 mg PO QID PRN PRN Reason: Pain hydrOXYzine HCL [Hydroxyzine HCl] 50 mg PO TID PRN PRN Reason: Anxiety Cholecalciferol (Vitamin D3) [Vitamin D3] 1,250 mcg PO WEEKLY Exenatide Microspheres [Bydureon Bcise] 2 mg SQ WEEKLY Follow up with: TORRES MUÑOZ MD [Primary Care Provider] - 08/01/24 11:00 am RUBEN JARAMILLO MD [NON-STAFF PHY W/O PRIVILEGES] - 11/14/24 8:30 am
[2024-07-24 11:50] VITALS: BP 118/65; PULSE 68; O2SAT 96
--- NOTE | 2024-07-24 13:54 | XRAY ---
Indication: Numbness and tingling. Normal CT head exam one day earlier. Sagittal, coronal, and axial MRI brain performed without contrast using T1, T2, FLAIR, diffusion, and ADC sequences. Comparison: None Ventriculosulcal pattern appears symmetric. No acute intracranial hemorrhage, abnormal extra-axial fluid collection, or mass effect. Diffusion images are negative for restricted signal. Fourth ventricle is midline without hydrocephalus. 7/8 cranial nerve complex bilaterally symmetric. Normal flow void signal within the major intracerebral circulation. Normal appearing craniocervical junction and sella turcica. Tiny fluid level in left maxillary sinus. Impression: Normal MRI brain without contrast exam. Incidental left maxillary sinus disease.
[2024-07-24] MEDS ORDERED: ZOCOR 20MG PO SCH (22:00)
[2024-07-28] MEDS ORDERED: VITAMIN D2 PO SCH (10:00)
== END 2024-07-24 14:40 | disposition home or self-care (01) ==
LOC: ED 20:05 → MED SURG 22:44
PROVIDERS: ADMIT Student in an Organized Health Care Education/Training Program; ATTEND Student in an Organized Health Care Education/Training Program
DX: G45.9 Transient cerebral ischemic attack, unspecified (principal); R20.2 Paresthesia of skin; E87.6 Hypokalemia; R07.9 Chest pain, unspecified; I10 Essential (primary) hypertension; K21.9 Gastro-esophageal reflux disease without esophagitis; F41.9 Anxiety disorder, unspecified; F32.A Depression, unspecified; Z79.899 Other long term (current) drug therapy
CPT/HCPCS: 36415; 70450; 70551; 80053; 80061; 81001; 81025; 82607; 83036; 83721; 83735; 84484; 85025; 93005; 93041; 93268; 93306; 94760; 99284; G0378; Q3014; J1200; A9270-GY